=== PATIENT | female | born 1985 | race Caucasian/White ===

== ENCOUNTER 2016-04-17 08:28 | Emergency (ER) | payer OTHER ==
--- NOTE | 2016-04-17 09:55 | ED ---
Female Urogenital HPI - General Chief complaint: Urogenital Stated complaint: Female Gu Time Seen by Provider: 04/17/16 09:25 Source: patient, RN notes reviewed Mode of arrival: ambulatory Limitations: no limitations - History of Present Illness Initial comments: Patient is 31-year-old female presents to the emergency room for evaluation of abnormal vaginal discharge. Patient states her last menstrual period was . Patient states she went to the [facility] clinic about 3 weeks ago and had a positive test. Patient states she thinks she is about 8 weeks . Patient denies falling up with CONSTRUCTION AND MAINTENANCE INSPECTOR yet. Patient states she woke up this morning and had 2 large episodes of brown discharge. Patient denies abdominal pain. Patient denies nausea or vomiting. Patient denies pain or burning during urination, trouble urinating or blood in urine. Patient denies history of STDs. Patient denies any vaginal discomfort or burning. Patient denies fevers or chills. Patient states that discharge worried her so she thought she should be evaluated. Last Menstrual Period: 02/10/16 - Related Data Previous Rx's Medication Instructions Recorded Nitrofurantoin Monohyd/M-Cryst 100 mg PO Q12HR 7 Days 04/17/16 [Macrobid] Allergies Allergy/AdvReac Type Severity Reaction Status Date / Time No Known Allergies Allergy Verified 04/17/16 09:08 Review of Systems ROS Statement: Those systems with pertinent positive or pertinent negative responses have been documented in the HPI. ROS Other: All systems not noted in ROS Statement are negative. Past Medical History Past Medical History: No Reported History Additional Past Medical History / Comment(s): Obstetric history: She has had 3 previous normal vaginal deliveries. This is her fourth and she has had care with Dr Burrell since 8 weeks. O neg, abs neg, Rub Imm, RPR NR , Hep B neg. normal 1hr glucola and she received rhogam on 10-7 at 27 weeks and 4 days. History of Any Multi-Drug Resistant Organisms: None Reported Past Surgical History: Cholecystectomy Additional Past Surgical History / Comment(s): cholecystectomy 2006 Past Anesthesia/Blood Transfusion Reactions: No Reported Reaction Past Psychological History: No Psychological Hx Reported Smoking Status: Never smoker Past Alcohol Use History: None Reported, Occasional Past Drug Use History: None Reported - Past Family History Father Family Medical History: No Reported History General Exam - General Exam Comments Initial Comments: Sitting in exam room in no acute distress. Limitations: no limitations General appearance: alert, in no apparent distress Head exam: Present: atraumatic, normocephalic, normal inspection Eye exam: Present: normal appearance ENT exam: Present: normal exam Neck exam: Present: normal inspection Respiratory exam: Present: normal lung sounds bilaterally. Absent: respiratory distress Cardiovascular Exam: Present: regular rate, normal rhythm, normal heart sounds GI/Abdominal exam: Present: soft, normal bowel sounds. Absent: distended, tenderness, guarding, rebound, rigid External exam: Present: normal external exam Speculum exam: Present: normal speculum exam, vaginal discharge (Brown vaginal discharge) By manual exam: Present: normal by manual exam Extremities exam: Present: normal inspection Back exam: Present: normal inspection Neurological exam: Present: alert, oriented X3, CN II-XII intact, normal gait Psychiatric exam: Present: normal affect, normal mood Skin exam: Present: warm, dry, intact, normal color. Absent: rash Course Vital Signs 04/17/16 04/17/16 04/17/16 08:33 12:37 13:37 Temperature 97.4 F L 98 F Pulse Rate 66 75 63 Respiratory 18 20 16 Rate Blood Pressure 107/63 144/62 110/56 O2 Sat by Pulse 97 100 99 Oximetry Medical Decision Making - Medical Decision Making Patient is doing an old female presents emergency room for evaluation of vaginal discharge. Urine positive. Patient still denying any abdominal pain. Patient does have brown discharge on examination. Patient's blood type O negative. Due to the discoloration of discharged will place patient RhoGAM. Patient's quantitative beta hCG 95,000. Will have patient return in 2 days for repeat serum beta-hCG. Advised patient to follow-up with CONSTRUCTION AND MAINTENANCE INSPECTOR in 24-48 hours reevaluation. Patient states she understands everything that was discussed with her. Return parameters discussed. Case discussed with Dr. Woo. - Lab Data Lab Results 04/17/16 04/17/16 04/17/16 Range/Units 09:57 09:57 11:20 HCG, Quant 26638.9 mIU/mL Urine Color Yellow Urine Appearance Cloudy H (Clear) Urine pH 6.5 (5.0-8.0) Ur Specific [place] 1.024 (1.001-1.035) Urine Protein Trace H (Negative) Urine Glucose (UA) Negative (Negative) Urine Ketones Negative (Negative) Urine Blood Moderate H (Negative) Urine Nitrate Negative (Negative) Urine Bilirubin Negative (Negative) Urine Urobilinogen <2.0 (<2.0) mg/dL Ur Leukocyte Esterase Moderate H (Negative) Urine RBC 30 H (0-5) /hpf Urine WBC 27 H (0-5) /hpf Ur Squamous Epith Cells 4 (0-4) /hpf Urine Bacteria Rare H (None) /hpf Urine Mucus Few H (None) /hpf Urine HCG, Qual Detected (Not Detectd) Trichomonas Ag (Rapid) (Negative) Blood Type Blood Type Recheck Antibody Screen 04/17/16 04/17/16 Range/Units 11:20 11:20 HCG, Quant mIU/mL Urine Color Urine Appearance (Clear) Urine pH (5.0-8.0) Ur Specific [place] (1.001-1.035) Urine Protein (Negative) Urine Glucose (UA) (Negative) Urine Ketones (Negative) Urine Blood (Negative) Urine Nitrate (Negative) Urine Bilirubin (Negative) Urine Urobilinogen (<2.0) mg/dL Ur Leukocyte Esterase (Negative) Urine RBC (0-5) /hpf Urine WBC (0-5) /hpf Ur Squamous Epith Cells (0-4) /hpf Urine Bacteria (None) /hpf Urine Mucus (None) /hpf Urine HCG, Qual (Not Detectd) Trichomonas Ag (Rapid) Negative (Negative) Blood Type O Negative Blood Type Recheck No Antibody Screen NEGATIVE Disposition Clinical Impression: Threatened , Urinary tract infection Disposition: HOME SELF-CARE Condition: Good Instructions: Threatened Miscarriage (ED), Urinary Tract Infection in (ED) Additional Instructions: Take antibiotics as directed for urinary tract infection. Return to lab in 2 days for repeat serum beta-hCG level. Please follow-up with CONSTRUCTION AND MAINTENANCE INSPECTOR in 24-48 hours for reevaluation. If any new symptom arises or symptoms worsen, return to ER as soon as possible. Prescriptions: Nitrofurantoin Monohyd/M-Cryst [Macrobid] 100 mg PO Q12HR 7 Days Referrals: Billie Luna MD [STAFF PHYSICIAN] - 1-2 days Time of Disposition: 13:26
[2016-04-17 10:23] LABS: Appearance,Urine Cloudy (Clear); Bacteria,Urine Rare /hpf; Bilirubin,Urine Negative (Negative); Glucose,Urine (UA) Negative (Negative); Ketones,Urine Negative (Negative); Leukocyte Esterase,Urine Moderate (Negative); Mucus,Urine Few /hpf; Nitrite,Urine Negative (Negative); PH, Urine 6.5 (5.0-8.0); Particle Count 7685; Protein,Urine Trace (Negative); RBC,Urine 30 /hpf (0-5); Specific Gravity,Urine 1.024 (1.001-1.035); Squamous Epithelial Cell,Urine 4 /hpf (0-4); UA Billing (MACRO vs. MICRO) MICRO; Urobilinogen,Urine <2.0 mg/dL (<2.0); WBC,Urine 27 /hpf (0-5)
[2016-04-17] MEDS ORDERED: Rhogam IMMUNE GLOBULIN 1,500 UNIT/1 ML IM ONE (13:10)
[2016-04-17 13:38] VITALS: BP 110/56; PULSE 63; RESP 16; TEMP 98
== END 2016-04-17 14:09 | disposition home or self-care (01) ==
LOC: EC 08:28
DX: O20.0 Threatened abortion (principal); N39.0 Urinary tract infection, site not specified; Z3A.08 8 weeks gestation of pregnancy
CPT/HCPCS: 99283; 96372; 36415; 86900; 86901; 87591; 87491; 86850; 81001; 81025; 84702; 87808; 87070; 87205; J2791

== ENCOUNTER → 2016-04-19 | Outpatient (CLI) | payer OTHER | END | disposition home or self-care (01) | LOC: LABMAIN 17:49 | PROVIDERS: ATTEND Physician Assistant | DX: O20.0 Threatened abortion (principal); Z3A.00 Weeks of gestation of pregnancy not specified | CPT/HCPCS: 36415; 84702 ==

== ENCOUNTER 2016-07-02 16:32 | Emergency (ER) | payer OTHER ==
[2016-07-02 17:08] VITALS: BP 116/63; PULSE 73; RESP 18; TEMP 98.2
[2016-07-02] MEDS ORDERED: TOBRAMYCIN 0.3% OPHTH DROPS 5 ML BTL RIGHT EYE STA (17:31)
[2016-07-02] MEDS ORDERED: PROPARACAINE 0.5% OPHTH DROPS 15 ML BTL RIGHT EYE STA (17:31)
--- NOTE | 2016-07-02 17:32 | ED ---
Eye Problem HPI - General Chief complaint: Eye Problems Stated complaint: Eye Irritation Source: patient, RN notes reviewed, old records reviewed Mode of arrival: ambulatory Limitations: no limitations - History of Present Illness Initial comments: Patient is a 31-year-old [employer] chief complaint of feeling a foreign body sensation or possible infection in her right eye. She reports this is been going on for 2 days. She is unsure if she got anything in her eye. She denies any fever or chills or decreased vision. She states that she did wake up with her eye crusted. Patient states she is up-to-date on all vaccinations. She denies any pain with extraocular eye movements or bright lights. - Related Data Previous Rx's Medication Instructions Recorded Nitrofurantoin Monohyd/M-Cryst 100 mg PO Q12HR 7 Days 04/17/16 [Macrobid] Allergies Allergy/AdvReac Type Severity Reaction Status Date / Time No Known Allergies Allergy Verified 07/02/16 17:08 Review of Systems ROS Statement: Those systems with pertinent positive or pertinent negative responses have been documented in the HPI. ROS Other: All systems not noted in ROS Statement are negative. Past Medical History Past Medical History: No Reported History Additional Past Medical History / Comment(s): Obstetric history: She has had 3 previous normal vaginal deliveries. This is her fourth and she has had care with Dr Burrell since 8 weeks. O neg, abs neg, Rub Imm, RPR NR , Hep B neg. normal 1hr glucola and she received rhogam on -7 at 27 weeks and 4 days. History of Any Multi-Drug Resistant Organisms: None Reported Past Surgical History: Cholecystectomy Additional Past Surgical History / Comment(s): cholecystectomy 2006 Past Anesthesia/Blood Transfusion Reactions: No Reported Reaction Past Psychological History: No Psychological Hx Reported Smoking Status: Never smoker Past Alcohol Use History: None Reported, Occasional Past Drug Use History: None Reported - Past Family History Father Family Medical History: No Reported History General Exam - General Exam Comments Initial Comments: Pleasant 31-year-old female. No distress. Limitations: no limitations General appearance: alert, in no apparent distress Head exam: Present: atraumatic, normocephalic, normal inspection Eye exam: Present: normal appearance, PERRL, EOMI, conjunctival injection ( Right eye conjunctival injection.). Absent: scleral icterus, periorbital swelling ENT exam: Present: normal exam, mucous membranes moist Neck exam: Present: normal inspection Respiratory exam: Present: normal lung sounds bilaterally. Absent: respiratory distress, wheezes, rales, rhonchi, stridor Cardiovascular Exam: Present: regular rate, normal rhythm, normal heart sounds. Absent: systolic murmur, diastolic murmur, rubs, gallop, clicks GI/Abdominal exam: Present: soft, normal bowel sounds. Absent: distended, tenderness, guarding, rebound, rigid Extremities exam: Present: normal inspection, full ROM, normal capillary refill. Absent: tenderness, pedal edema, joint swelling, calf tenderness Back exam: Present: normal inspection Neurological exam: Present: alert, oriented X3, CN II-XII intact Psychiatric exam: Present: normal affect, normal mood Skin exam: Present: warm, dry, intact, normal color. Absent: rash Course Vital Signs 07/02/16 17:06 Temperature 98.2 F Pulse Rate 73 Respiratory 18 Rate Blood Pressure 116/63 O2 Sat by Pulse 99 Oximetry Medical Decision Making - Medical Decision Making Patient is a 31 year old female with conjunctivitis in right eye for 1 day. Patient has no foreign body, fluoerescein eye exam negative. PAtient will be discharged with tobrex drops, advised to follow up with othalmology if symptoms persist. PAtient understands treatment plan and while comply. Disposition Clinical Impression: Conjunctivitis, right eye Disposition: HOME SELF-CARE Condition: Good Instructions: Conjunctivitis (ED) Additional Instructions: Apply the given antibiotic drop in the eye every 4 hours. Patient must follow- up with customer service clerk if symptoms continue to persist. Return to emergency Department if any alarming signs or symptoms occur. Referrals: None,Stated [Primary Care Provider] - 1-2 days Paola Ponce MD [STAFF PHYSICIAN] - 1-2 days Lefty Birmingham MD [STAFF PHYSICIAN] - 1-2 days Time of Disposition: 18:14
== END 2016-07-02 18:28 | disposition home or self-care (01) ==
LOC: EC 16:32
DX: H10.9 Unspecified conjunctivitis (principal)
CPT/HCPCS: 99283

== ENCOUNTER 2018-05-17 23:47 | Outpatient (CLI) | payer OTHER ==
[2018-05-18 00:58] VITALS: BP 132/89; PULSE 108; RESP 16; TEMP 97.1
--- NOTE | 2018-05-20 08:37 | P.MSEPDOC ---
Presenting Problems - Arrival Data Date of Arrival on Unit: 05/17/18 Time of Arrival on Unit: 23:47 Mode of Transport: Wheelchair - Complaint OB-Reason for Admission/Chief Complaint: Possible Onset of Labor Medical History - Information : 7 Para: 6 Term: 6 : 0 Abortions: Spontaneous or Elective: 0 Number of Living Children: 6 - Gestational Age Gestational Age by ELVIN (wks/days): 40 Weeks and 0 Days - History Complications: Smoker Review of Systems - Review of Systems Constitutional: No problems Breast: No problems ENT: No problems Cardiovascular: No problems Respiratory: No problems Gastrointestinal: No problems Genitourinary: No problems Musculoskeletal: No problems Neurological: No problems Skin: No problems Vital Signs - Temperature Temperature: 97.1 F Temperature Source: Temporal Artery Scan - Pulse Right Brachial Pulse Rate: 108 Pulse Assessment Method: Automatic Cuff - Respirations Respiratory Rate: 16 Oxygen Delivery Method: Room Air O2 Sat by Pulse Oximetry: 99 - Blood Pressure Right Arm Blood Pressure: 132/89 Blood Pressure Mean: 103 Blood Pressure Source: Automatic Cuff Medical Screen Scoring (Pre) - Cervical Exam Dilation: 1-3 cm = 1 Membranes: Intact - Uterine Contractions Frequency: N/A Duration: N/A Intensity: N/A - Maternal Vital Signs Maternal Temperature: N/A Maternal Blood Pressure: N/A Signs of Preeclampsia: N/A Maternal Respirations: N/A - Pain Assessment Pain Scale Used: Numeric (1 - 10) Pain Intensity: 0 - Maternal Trauma Maternal Trauma: N/A - Assessment Baseline FHR: 135 Heart Rate - NICHD Category: Category I (Normal) = 0 NST: Reactive Position: N/A - Total Score Total Score (Pre): 1 Physician Notification (Pre) - Physician Notified Physician Notified Date: 05/18/18 Physician Notified Time: 00:45 Physician/Practitioner Notifed:: Dr. Luna Spoke With: Dr. Luna New Order Received: Yes - Notification Comment Comment: Dr. Luna called and given report on pt. Pt c/o. VS wnl. reactive NST. vag exam of 2/70/-2. No contractions noted per toco or patient. Orders recieved to d/c pt to home. Disposition - Disposition OB Disposition: Discharge to home Discharge Date: 05/18/18 Discharge Time: 00:45 I agree with the RN Medical Screening Exam: Yes Risk & Benefit of care provided described in d/c instruction: Yes Diagnosis: FALSE LABOR, UNSPECIFIED
== END 2018-05-18 00:50 | disposition home or self-care (01) ==
LOC: FBPOP 23:47
PROVIDERS: ATTEND Obstetrics & Gynecology
DX: O47.1 False labor at or after 37 completed weeks of gestation (principal); O99.333 Smoking (tobacco) complicating pregnancy, third trimester; F17.200 Nicotine dependence, unspecified, uncomplicated; Z3A.40 40 weeks gestation of pregnancy
CPT/HCPCS: 59025; G0463; 99213

== ENCOUNTER 2018-05-22 06:00 | Inpatient (IN) | payer OTHER ==
[2018-05-22] MEDS ORDERED: LIDOCAINE 0.5% (PF) 5 MG/ML (50 ML SDV) SQ PRN (06:48)
[2018-05-22] MEDS ORDERED: PENICILLIN G POTASSIUM 5,000,000 UNIT in DEXTROSE 5% IN WATER 100 ML IVPB STA ×2 (06:48)
[2018-05-22] MEDS ORDERED: METHYLERGONOVINE 0.2 MG/ML 1 ML AMP IM PRN (06:48)
[2018-05-22] MEDS ORDERED: TERBUTALINE 1 MG/ML VIAL SQ PRN (06:48)
[2018-05-22] MEDS ORDERED: OXYTOCIN 10 UNIT/ML 1 ML VIAL IM PRN (06:48)
[2018-05-22] MEDS ORDERED: CARBOPROST TROMETHAMINE 250 MCG/ML 1 ML AMP IM PRN (06:48)
[2018-05-22 06:57] VITALS: BMI 30.4
[2018-05-22] MEDS ORDERED: OXYTOCIN 30 UNITS/500 ML NS 30 UNIT in SALINE 1 500ML.BAG IV SCH (07:00)
[2018-05-22] MEDS: LACTATED RINGERS 1,000 ML IV SCH (07:03)
[2018-05-22 07:16] LABS: Basophils % (A) 0 %; Eosinophils # (A) 0.3 k/uL (0-0.7); Eosinophils % (A) 2 %; HGB 10.8 gm/dL (11.4-16.0); Lymphocytes # (A) 2.9 k/uL (1.0-4.8); Lymphocytes % (A) 21 %; MCH 26.7 pg (25.0-35.0); MCHC 32.6 g/dL (31.0-37.0); MCV 81.9 fL (80.0-100.0); Mean Platelet Volume 6.2; Monocytes # (A) 0.6 k/uL (0-1.0); Monocytes % (A) 4 %; Neutrophils # (A) 10.2 k/uL (1.3-7.7); Neutrophils % (A) 72 %; Platelet Count 321 k/uL (150-450); RBC 4.03 m/uL (3.80-5.40); RDW 15.8 % (11.5-15.5); WBC 14.2 k/uL (3.8-10.6)
[2018-05-22] MEDS ORDERED: BUTORPHANOL 1 MG/ML 1 ML VIAL IV PRN (08:38)
--- NOTE | 2018-05-22 08:44 | P.HPOB ---
History of Present Illness H&P Date: 05/22/18 Chief Complaint: 40-4/7 weeks, induction The patient is a 33-year-old 7 para 6006 admitted at 40-4/7 weeks as established by an 8 week ultrasound. She is admitted for postdates induction of labor with all signs reassuring. Her has been complicated by early diagnosis of Trichomonas and Chlamydia treated and tested for curet which time Chlamydia was found to be positive again at approximately 35 weeks and was retreated. There has not been time for test of cure. She additionally had an episode during the at which time she complained of pustular lesions in the vulvar area which were presumptively thought to be herpes and treated as such though cultures were negative as it was the end of the episode. Nonetheless, she has presumably been on prophylaxis since that time. She additionally is Rh- and received RhoGAM at 28 weeks. Group B strep status is positive. care has been relatively inconsistent as the patient misses multiple appointments. Obstetrical history: 7 para 6006 was 6 term vaginal deliveries. Current statistics are listed above. EDC of 05/18/2018 was established by an 8 week ultrasound. Laboratory workup demonstrates a blood type of O- with a negative antibody screen. Rubella status is immune. The remainder of the laboratory workup was within normal limits aside from the positive STD testing which was treated. One hour Glucola was within normal limits. Retesting for STDs at approximately 35 weeks was again positive for chlamydia which was retreated as was her partner. Group B strep status is positive. Gynecologic history: Significant for multiple episodes of STDs as noted in history of present illness. There is a presumptive history of HSV though it has never been culture proven. There are no evidence of lesions currently. Review of Systems Review of systems is confined to history of present illness. Past Medical History Past Medical History: No Reported History Additional Past Medical History / Comment(s): Obstetric history: She has had 3 previous normal vaginal deliveries. This is her fourth and she has had care with Dr Burrell since 8 weeks. O neg, abs neg, Rub Imm, RPR NR , Hep B neg. normal 1hr glucola and she received rhogam on 10-7 at 27 weeks and 4 days. History of Any Multi-Drug Resistant Organisms: None Reported Past Surgical History: Cholecystectomy Additional Past Surgical History / Comment(s): cholecystectomy 2006 Past Anesthesia/Blood Transfusion Reactions: No Reported Reaction Past Psychological History: No Psychological Hx Reported Smoking Status: Current every day smoker Past Alcohol Use History: None Reported, Occasional Past Drug Use History: None Reported - Past Family History Father Family Medical History: No Reported History Medications and Allergies Home Medications Medication Instructions Recorded Confirmed Type Pnv No.95/Ferrous Fum/Folic AC 1 each PO ONCE 05/17/18 05/22/18 History [ Multivitamin Tablet] Allergies Allergy/AdvReac Type Severity Reaction Status Date / Time No Known Allergies Allergy Verified 05/22/18 06:48 Exam Vital Signs Temp Pulse Resp BP Pulse Ox 05/22/18 06:51 96.5 F L 74 15 131/65 98 Intake and Output 05/21/18 05/22/18 05/22/18 22:59 06:59 14:59 Other: Weight 85.411 kg In general, this is a well-developed, well-nourished white female in no acute distress. Her heart has a regular rhythm and rate without murmur. Her lungs are clear to auscultation bilaterally in all teixeira. Her abdomen is gravid, nondistended, has normal active bowel sounds, soft, nontender, and without any palpable masses aside from uterine fundus. Her extremities are without any cyanosis, clubbing, or significant edema and are nontender to palpation bilaterally. Digital cervical examination demonstrated sugars to approximate 3 cm dilated, 50% effaced, with the vertex in presentation at -2 station. Artificial rupture of membranes is carried out demonstrating clear fluid. Results Result Diagrams: 05/22/18 06:55 Abnormal Lab Results - Last 24 Hours (Table) 05/22/18 Range/Units 06:55 WBC 14.2 H (3.8-10.6) k/uL Hgb 10.8 L (11.4-16.0) gm/dL Hct 33.0 L (34.0-46.0) % RDW 15.8 H (11.5-15.5) % Neutrophils # 10.2 H (1.3-7.7) k/uL Assessment and Plan (1) Group B streptococcal infection in Current Visit: Yes Status: Acute Code(s): O98.819 - OTH MATERNAL INFEC/ PARASTC DISEASES COMP PREG, UNSP TRI; B95.1 - STREPTOCOCCUS, GROUP B, CAUSING DISEASES CLASSD [id number] SNOMED Code(s): 757587334 (2) Post-dates Current Visit: Yes Status: Acute Code(s): O48.0 - POST-TERM SNOMED Code(s): 83549624 Plan: The patient has been admitted for induction of labor and Pitocin augmentation has been started. Additionally she has had antibiotic prophylaxis started for group B strep. Artificial rupture of membranes is been carried out. We will continue with expectant management along with close maternal and surveillance. The patient is a good candidate for either IV or epidural analgesia, whichever she may choose.
[2018-05-22] MEDS ORDERED: PENICILLIN G POTASSIUM 2,500,000 UNIT in DEXTROSE 5% IN WATER 100 ML IVPB SCH ×4 (10:49→11:00)
[2018-05-22] MEDS ORDERED: ZOLPIDEM 5 MG TAB PO PRN (13:27)
[2018-05-22] MEDS ORDERED: diphenhydrAMINE 50 MG CAP PO PRN (13:27)
[2018-05-22] MEDS ORDERED: ACETAMINOPHEN TAB 325 MG TAB PO PRN (13:27)
[2018-05-22] MEDS ORDERED: HYDROCORTISONE 2.5% RECTAL CREAM 30 GM TUBE RECTAL PRN (13:27)
[2018-05-22] MEDS ORDERED: BENZOCAINE/MENTHOL SPRAY 1 GM/SPRAY AEROSOL TOPICAL PRN (13:27)
[2018-05-22] MEDS ORDERED: WITCH HAZEL 1 EACH MED..PAD TOPICAL PRN (13:27)
[2018-05-22] MEDS ORDERED: diphenhydrAMINE 50 MG/ML 1 ML VIAL IVP PRN ×2 (13:27)
[2018-05-22] MEDS ORDERED: SIMETHICONE 80 MG CHEWABLE PO PRN (13:27)
[2018-05-22] MEDS ORDERED: diphenhydrAMINE 25 MG CAP PO PRN (13:27)
[2018-05-22] MEDS ORDERED: OXYTOCIN 20 UNITS/1000 ML NS 1,000 ML IV SCH (13:30)
--- NOTE | 2018-05-22 13:31 | P.PROBDLV ---
Vaginal Delivery Note - . Vaginal Delivery Note: The patient is a 33-year-old 7 para 6 or 06 admitted at 40-4/7 weeks by good dating parameters. She is admitted for postdates induction of labor after having had fairly erratic care. She also was found with chlamydia twice during the as well as Trichomonas early on in the , all of which was treated though the most recent chlamydial test has not been tested for cure. She is Rh- and received RhoGAM at 28 weeks and also was found to be group B strep positive. On labor and delivery, she had Pitocin started followed by antibiotic prophylaxis for group B strep. She underwent artificial rupture of membranes for clear fluid and made fairly quick progress through the active phase of labor to complete and 0 station. She pushed over the course of approximately 1 contraction to a normal spontaneous vaginal delivery of a viable 6 lbs. 9 oz. baby boy with Apgars of 9 at 1 minute and 9 at 5 minutes delivered in the left occiput anterior position. The placenta was delivered spontaneously, intact, and grossly normal with a grossly normal three-vessel cord inserted approximately 1 cm from the placental margin. The cord was also noted to have a single true knot. There were no lacerations of the perineum, vagina, or cervix. All sponge, instrument, and needle counts were correct. There were no complications. Estimated blood loss for the case is approximately 150 mL. Both mother and are resting comfortably in recovery.
[2018-05-22] MEDS: IBUPROFEN 600 MG TAB PO PRN ×2 (14:06→21:48)
[2018-05-22] MEDS ORDERED: Rhogam IMMUNE GLOBULIN 1,500 UNIT/1 ML IM ONE (16:43)
[2018-05-22] MEDS ORDERED: SENNOSIDES-DOCUSATE SODIUM 1 EACH TAB PO SCH (20:00)
[2018-05-23] MEDS: LACTATED RINGERS 1,000 ML IV SCH (05:49)
--- NOTE | 2018-05-23 09:22 | P.DS ---
Providers Date of admission: 05/22/18 06:38 Expected date of discharge: 05/23/18 Attending physician: Pato Durán Primary care physician: Stated None - Discharge Diagnosis(es) (1) Group B streptococcal infection in Current Visit: Yes Status: Acute (2) Post-dates Current Visit: Yes Status: Acute (3) Normal spontaneous vaginal delivery Current Visit: Yes Status: Acute Hospital Course: The patient is a 33-year-old 7 para 6006 admitted at 40-4/7 weeks by good dating parameters. She is admitted for postdates induction with all signs reassuring. Her was complicated by chlamydia diagnosed on 2 separate occasions and treated each time as well as Trichomonas diagnosed initially and treated as well. She additionally is known to be Rh- and received RhoGAM at 28 weeks. She was also thought at one point in the to had a herpetic outbreak and has reportedly been on prophylaxis through the remainder of the . care has been spotty as the patient has not shown in the office for many of her visits. On labor and delivery, she had Pitocin started as well as antibody prophylaxis for group B strep. She underwent artificial rupture of membranes for clear fluid. She progressed relatively consistently to complete and then pushed quickly to a normal spontaneous vaginal delivery of a viable 6 lbs. 9 oz. baby boy with Apgars of 9 at 1 minute and 9 at 5 minutes. Her course was unremarkable with vital signs remaining stable and her temperature was afebrile throughout. She was deemed stable for discharge on day #1 was discharged home to follow-up in the office in 6 weeks' time routinely. Discharge instructions included calling for any significantly increased bleeding or foul-smelling lochia, significantly increased fever or abdominal pain, perineal complaints, breast complaints, or anything else that concerned her. She was additionally instructed to have nothing in the vagina for at least 6 weeks time to include intercourse. She did express at her most recent visit a desire for tubal ligation and I have asked her to return to the office at approximate 5 weeks for a visit at which time we will also consent and book laparoscopic tubal ligation. Consent has been signed to that effect in the office. She understood all of her instructions and agrees to follow up as noted above. Discharge medications included only [id number] analgesic pain medications as needed. There is some question as to whether the will be released to the patient as she does not have possession of her previous 6 children. CPS is involved and will make a decision shortly. Maternal blood type is Rh- and cord blood was sent for the evaluation of RhoGAM prior to discharge. Rubella status is immune. Procedures: #1. Pitocin induction #2. Antibiotic prophylaxis #3. Artificial rupture of membranes #4. Normal spontaneous vaginal delivery #5. access services assistant consult Patient Condition at Discharge: Good Plan - Discharge Summary New Discharge Prescriptions: No Action Pnv No.95/Ferrous Fum/Folic AC [ Multivitamin Tablet] 1 each PO ONCE Discharge Medication List Pnv No.95/Ferrous Fum/Folic AC [ Multivitamin Tablet] 1 each PO ONCE [History] Follow up Appointment(s)/Referral(s): Pato Durán MD [STAFF PHYSICIAN] - 6 Weeks Discharge Disposition: HOME SELF-CARE
[2018-05-23] MEDS: IBUPROFEN 600 MG TAB PO PRN (16:32)
[2018-05-23 18:09] VITALS: BP 112/72; PULSE 80; RESP 18; TEMP 98.3
== END 2018-05-23 17:15 | disposition home or self-care (01) | DRG 807 ==
LOC: 4FBP 06:38
PROVIDERS: ADMIT Obstetrics & Gynecology; ATTEND Obstetrics & Gynecology
PROC: 3E033VJ Introduction of Other Hormone into Peripheral Vein, Percutaneous Approach (ICD-10-PCS; principal; 2018-05-22)
PROC: 10E0XZZ Delivery of Products of Conception, External Approach (ICD-10-PCS; principal; 2018-05-22)
PROC: 10907ZC Drainage of Amniotic Fluid, Therapeutic from Products of Conception, Via Natural or Artificial Opening (ICD-10-PCS; principal; 2018-05-22)
DX: O48.0 Post-term pregnancy (principal); Z37.0 Single live birth; Z3A.40 40 weeks gestation of pregnancy; O99.824 Streptococcus B carrier state complicating childbirth; F17.200 Nicotine dependence, unspecified, uncomplicated; O99.334 Smoking (tobacco) complicating childbirth; Z90.49 Acquired absence of other specified parts of digestive tract; O69.2XX0 Labor and delivery complicated by other cord entanglement, with compression, not applicable or unspecified
CPT/HCPCS: 85025; 85461; 86850; 86900; 86901

== ENCOUNTER → 2019-02-18 | Outpatient (CLI) | payer OTHER ==
[~2019-02-18] MED LIST: cefTRIAXone 250 MG VIAL IM NR
[2019-02-18 15:03] VITALS: BP 118/73; PULSE 65; RESP 16; TEMP 98.4
== END | disposition home or self-care (01) ==
LOC: PROCWHC3 14:41
PROVIDERS: ATTEND Obstetrics & Gynecology
DX: A54.9 Gonococcal infection, unspecified (principal)
CPT/HCPCS: 96372; J0696

== ENCOUNTER → 2019-05-05 | Outpatient (CLI) | payer OTHER ==
[2019-05-05 13:00] LABS: HCT 31.4 % (34.0-46.0); HGB 10.3 gm/dL (11.4-16.0); MCH 28.2 pg (25.0-35.0); MCHC 32.7 g/dL (31.0-37.0); MCV 86.1 fL (80.0-100.0); Mean Platelet Volume 7.2; Platelet Count 307 k/uL (150-450); RBC 3.64 m/uL (3.80-5.40); RDW 13.2 % (11.5-15.5); WBC 16.3 k/uL (3.8-10.6)
== END | disposition home or self-care (01) ==
LOC: LABWHC1 12:06
PROVIDERS: ATTEND Obstetrics & Gynecology
DX: Z34.82 Encounter for supervision of other normal pregnancy, second trimester (principal); Z3A.00 Weeks of gestation of pregnancy not specified
CPT/HCPCS: 36415; 82950; 85027; 86850

== ENCOUNTER 2019-07-01 10:35 | Outpatient (CLI) | payer OTHER ==
[2019-07-01 11:21] VITALS: BP 108/63; PULSE 77; RESP 16; TEMP 97.2
--- NOTE | 2019-07-01 12:17 | P.MSEPDOC ---
Presenting Problems - Arrival Data Date of Arrival on Unit: 07/01/19 Time of Arrival on Unit: 10:35 Mode of Transport: Ambulatory - Complaint OB-Reason for Admission/Chief Complaint: Decreased Movement, NST Comment: sent from office with script due to doppler of 110bpm and decreased movement Medical History - Information : 8 Para: 7 Term: 7 : 0 Abortions: Spontaneous or Elective: 0 Number of Living Children: 7 - Gestational Age Gestational Age by ELVIN (wks/days): 35 Weeks and 5 Days - History Complications: Smoker Review of Systems - Review of Systems Constitutional: No problems Breast: No problems ENT: No problems Cardiovascular: No problems Respiratory: No problems Gastrointestinal: No problems Genitourinary: No problems Musculoskeletal: No problems Neurological: No problems Skin: No problems Vital Signs - Temperature Temperature: 97.2 F Temperature Source: Temporal Artery Scan - Pulse Right Brachial Pulse Rate: 77 Pulse Assessment Method: Automatic Cuff - Respirations Respiratory Rate: 16 Oxygen Delivery Method: Room Air O2 Sat by Pulse Oximetry: 97 - Blood Pressure Right Arm Blood Pressure: 108/63 Blood Pressure Mean: 78 Blood Pressure Source: Automatic Cuff Medical Screen Scoring (Pre) - Cervical Exam Dilation: Exam Deferred Effacement: Exam Deferred - Uterine Contractions Frequency: > 5 minutes apart = 1 Duration: N/A Intensity: N/A - Maternal Vital Signs Maternal Temperature: N/A Maternal Blood Pressure: N/A Signs of Preeclampsia: N/A, Headache = 1 Maternal Respirations: N/A - Maternal Trauma Maternal Trauma: N/A - Assessment - Baby A Baseline FHR: 115 Heart Rate - NICHD Category: Category I (Normal) = 0 NST: Reactive Position: N/A Station: N/A - Total Score - Baby A Total Score - Baby A: 2 - Total Score - Baby B Total Score - Baby B: 2 - Total Score - Baby C Total Score - Baby C: 2 - Level of Risk - Baby A Level of Risk - Baby A: Low (0-5) - Level of Risk - Baby B Level of Risk - Baby B: Low (0-5) - Level of Risk - Baby C Level of Risk - Baby C: Low (0-5) Physician Notification (Pre) - Physician Notified Physician Notified Date: 07/01/19 Physician Notified Time: 11:15 New Order Received: Yes (discharge with instruction) - Notification Comment Comment: Dr. De La Fuente called and reported category 1 hearttones with baseline of 115-110, many accelerations, much movement. Orders ok to discharge and keep next scheduled appt. Disposition - Disposition OB Disposition: Triage, Discharge to home Discharge Date: 07/01/19 Discharge Time: 11:17 I agree with the RN Medical Screening Exam: Yes Risk & Benefit of care provided described in d/c instruction: Yes Diagnosis: RELATED CONDITIONS, UNSPECIFIED, THIRD TRIMESTER
== END 2019-07-01 11:17 | disposition home or self-care (01) ==
LOC: FBPOP 10:35
PROVIDERS: ATTEND Obstetrics & Gynecology
DX: O36.8130 Decreased fetal movements, third trimester, not applicable or unspecified (principal); O99.333 Smoking (tobacco) complicating pregnancy, third trimester; F17.200 Nicotine dependence, unspecified, uncomplicated; Z3A.35 35 weeks gestation of pregnancy
CPT/HCPCS: 59025

== ENCOUNTER 2019-07-20 18:01 | Inpatient (IN) | payer OTHER ==
[2019-07-20] MEDS ORDERED: CARBOPROST TROMETHAMINE 250 MCG/ML 1 ML AMP IM PRN (18:33)
[2019-07-20] MEDS ORDERED: METHYLERGONOVINE 0.2 MG/ML 1 ML AMP IM PRN (18:33)
[2019-07-20] MEDS ORDERED: OXYTOCIN 10 UNIT/ML 1 ML VIAL IM PRN (18:33)
[2019-07-20] MEDS ORDERED: AMPICILLIN 2,000 MG in SODIUM CHLORIDE 0.9% 100 ML IVPB STA (18:33)
[2019-07-20] MEDS ORDERED: LIDOCAINE 0.5% (PF) 5 MG/ML (50 ML SDV) SQ PRN (18:33)
[2019-07-20] MEDS ORDERED: TERBUTALINE 1 MG/ML VIAL SQ PRN (18:33)
[2019-07-20] MEDS ORDERED: LACTATED RINGERS 1,000 ML IV SCH (18:45)
[2019-07-20] MEDS ORDERED: OXYTOCIN 30 UNITS/500 ML NS 30 UNIT in SALINE 1 500ML.BAG IV SCH (18:45)
[2019-07-20 19:12] LABS: Basophils % (A) 0 %; Eosinophils # (A) 0.2 k/uL (0-0.7); Eosinophils % (A) 2 %; HCT 31.7 % (34.0-46.0); HGB 10.6 gm/dL (11.4-16.0); Hypochromasia Slight; Lymphocytes # (A) 1.9 k/uL (1.0-4.8); Lymphocytes % (A) 13 %; MCH 26.8 pg (25.0-35.0); MCHC 33.5 g/dL (31.0-37.0); Mean Platelet Volume 7.5; Monocytes # (A) 0.6 k/uL (0-1.0); Monocytes % (A) 4 %; Neutrophils # (A) 12.2 k/uL (1.3-7.7); Neutrophils % (A) 80 %; Platelet Count 286 k/uL (150-450); RBC 3.97 m/uL (3.80-5.40); RDW 15.3 % (11.5-15.5); WBC 15.2 k/uL (3.8-10.6)
--- NOTE | 2019-07-20 19:32 | P.HPOB ---
History of Present Illness H&P Date: 07/20/19 Chief Complaint: Contractions This is a 34-year-old female 8 para 7 with the estimated date of confinement of 07/31/2019, estimated gestational age of 38-3/7 weeks, who presents to labor and delivery with complaints of contractions since approximately 11 PM last night. She states she also felt like she was leaking some fluid at that time. Her contractions became more persistent through the day and she came in. Her care has been with Dr. De La Fuente. She was treated for gonorrhea at approximately 20 weeks. Test of cure was negative. She does plan to give the baby up for adoption and currently does not have custody of any of her other children. She denies any complications with her care. labs: Gonorrhea-positive with test of cure negative. Chlamydia/Trichomonas-negative Hepatitis B surface antigen-negative RPR-nonreactive Rubella-immune Blood type-O- Antibody screen-negative HIV-nonreactive Hemoglobin-12.1 Quad screen-negative Random glucose-75 Obstetrical ultrasound-normal anatomy One hour Glucola-123 Group B streptococcus-negative, however positive in her last . Obstetrical history: . History of 7 vaginal deliveries all at term. She denies any competitions with any of her pregnancies. Social history: She is single. She is unemployed. Gynecologic history: History of Chlamydia and Trichomonas treated in previous pregnancies and history of gonorrhea treated during this . Review of Systems Constitutional: Denies chills, Denies fever Eyes: denies blurred vision, denies pain Ears, nose, mouth and throat: Denies headache, Denies sore throat Cardiovascular: Denies chest pain, Denies shortness of breath Respiratory: Denies cough Gastrointestinal: Reports abdominal pain (Irregular contractions) Genitourinary: Reports pelvic pain, Reports Musculoskeletal: Reports low back pain Integumentary: Denies pruritus, Denies rash Neurological: Denies numbness, Denies weakness Past Medical History Past Medical History: No Reported History History of Any Multi-Drug Resistant Organisms: None Reported Past Surgical History: Cholecystectomy Additional Past Surgical History / Comment(s): cholecystectomy 2006 Past Anesthesia/Blood Transfusion Reactions: No Reported Reaction Past Psychological History: No Psychological Hx Reported Smoking Status: Current every day smoker Past Alcohol Use History: None Reported Past Drug Use History: None Reported - Past Family History Father Family Medical History: No Reported History Medications and Allergies Home Medications Medication Instructions Recorded Confirmed Type No Known Home Medications 02/18/19 07/20/19 History Allergies Allergy/AdvReac Type Severity Reaction Status Date / Time No Known Allergies Allergy Verified 07/20/19 18:33 Exam Osteopathic Statement: *. No significant issues noted on an osteopathic structural exam other than those noted in the History and Physical/Consult. Intake and Output 07/20/19 07/20/19 07/20/19 06:59 14:59 22:59 Other: Weight 89.811 kg Gen.: Well-developed well-nourished female in no acute distress HEENT: Within normal limits Heart: Regular rate and rhythm Lungs: Clear to auscultation bilaterally Abdomen: Cervix: 6-7 cm/thick/-3 station. heart tones: Category 1 with contractions every 2-3 minutes Extremities: Negative Homans Results Result Diagrams: 07/20/19 18:45 Abnormal Lab Results - Last 24 Hours (Table) 07/20/19 Range/Units 18:45 WBC 15.2 H (3.8-10.6) k/uL Hgb 10.6 L (11.4-16.0) gm/dL Hct 31.7 L (34.0-46.0) % Neutrophils # 12.2 H (1.3-7.7) k/uL Assessment and Plan (1) 38 weeks gestation of Current Visit: Yes Status: Acute Code(s): Z3A.38 - 38 WEEKS GESTATION OF SNOMED Code(s): 21268895 (2) Group B Streptococcus carrier, +RV culture, currently Current Visit: Yes Status: Acute Code(s): O99.820 - STREPTOCOCCUS B CARRIER STATE COMPLICATING SNOMED Code(s): 8773360331217 Plan: Admission for early active labor. Antibiotic prophylaxis secondary to history of group B Streptococcus in previous . Expectant management. Patient does plan to give the baby up for adoption via open adoption. Social work will be notified.
[2019-07-20] MEDS ORDERED: BUTORPHANOL 1 MG/ML 1 ML VIAL IV PRN (22:48)
[2019-07-20] MEDS ORDERED: AMPICILLIN 1,000 MG in SODIUM CHLORIDE 0.9% 50 ML IVPB SCH (23:00)
--- NOTE | 2019-07-20 23:57 | P.PROBDLV ---
Vaginal Delivery Note - . Vaginal Delivery Note: The patient progressed to complete dilation after oxytocin augmentation of labor and one dose of Stadol. Once reaching complete dilation, she began pushing. Infant's head came to a crown and then delivered across the perineum followed by the remainder of the body. was placed on mother's abdomen and cord was clamped and cut. Nose and mouth were also bulb suctioned. A viable male was noted with scores of 9 at 1 minute and 9 at 5 minutes and weight of 5 lbs. 15 oz. Placenta delivered shortly thereafter, intact, with a three-vessel cord. Uterus contracted well after oxytocin was given and uterine massage was carried out. Also her bladder was drained with a straight cath. Estimated blood loss is approximately 100 mL's. Both mother and are in stable condition.
[2019-07-21] MEDS ORDERED: SIMETHICONE 80 MG CHEWABLE PO PRN (00:26)
[2019-07-21] MEDS ORDERED: WITCH HAZEL 1 EACH MED..PAD TOPICAL PRN (00:26)
[2019-07-21] MEDS ORDERED: LANOLIN CREAM 5 GM TUBE TOPICAL PRN (00:26)
[2019-07-21] MEDS ORDERED: HYDROCORTISONE 2.5% RECTAL CREAM 30 GM TUBE RECTAL PRN (00:26)
[2019-07-21] MEDS ORDERED: IBUPROFEN 600 MG TAB PO PRN (00:26)
[2019-07-21] MEDS ORDERED: diphenhydrAMINE 50 MG/ML 1 ML VIAL IVP PRN ×2 (00:26)
[2019-07-21] MEDS ORDERED: OXYTOCIN 20 UNITS/1000 ML NS 1,000 ML IV SCH (00:26)
[2019-07-21] MEDS ORDERED: ZOLPIDEM 5 MG TAB PO PRN (00:26)
[2019-07-21] MEDS ORDERED: diphenhydrAMINE 50 MG CAP PO PRN (00:26)
[2019-07-21] MEDS ORDERED: diphenhydrAMINE 25 MG CAP PO PRN (00:26)
[2019-07-21] MEDS ORDERED: BENZOCAINE/MENTHOL SPRAY 1 GM/SPRAY AEROSOL TOPICAL PRN (00:26)
[2019-07-21] MEDS: SENNOSIDES-DOCUSATE SODIUM 1 EACH TAB PO SCH ×3 (01:49→20:17)
[2019-07-21] MEDS ORDERED: Rhogam IMMUNE GLOBULIN 1,500 UNIT/1 ML IM ONE (01:51)
[2019-07-21] MEDS: ACETAMINOPHEN TAB 325 MG TAB PO PRN ×2 (02:11→11:40)
[2019-07-21 05:50] LABS: Basophils % (A) 0 %; Eosinophils # (A) 0.2 k/uL (0-0.7); Eosinophils % (A) 1 %; HCT 29.9 % (34.0-46.0); HGB 9.7 gm/dL (11.4-16.0); Hypochromasia Slight; Lymphocytes # (A) 1.8 k/uL (1.0-4.8); Lymphocytes % (A) 11 %; MCH 26.1 pg (25.0-35.0); MCHC 32.4 g/dL (31.0-37.0); MCV 80.3 fL (80.0-100.0); Mean Platelet Volume 7.5; Monocytes # (A) 0.7 k/uL (0-1.0); Monocytes % (A) 4 %; Neutrophils # (A) 14.2 k/uL (1.3-7.7); Neutrophils % (A) 83 %; Platelet Count 271 k/uL (150-450); RBC 3.73 m/uL (3.80-5.40); RDW 15.3 % (11.5-15.5); WBC 17.2 k/uL (3.8-10.6)
--- NOTE | 2019-07-21 08:18 | P.DS ---
Providers Date of admission: 07/20/19 18:28 Expected date of discharge: 07/21/19 Attending physician: Andi De La Fuente Primary care physician: Stated None - Discharge Diagnosis(es) (1) 38 weeks gestation of Current Visit: Yes Status: Acute (2) Group B Streptococcus carrier, +RV culture, currently Current Visit: Yes Status: Acute Hospital Course: This is a 34-year-old female 8 para 7 at 38-3/7 weeks who presented in active labor. She delivered vaginally a viable male on 07/20/2019 with scores of 9 at 1 minute and 9 at 5 minutes and infant weight of 5 lbs. 15 oz. Her course has been uncomplicated. Lochia is decreasing. Pain is well-controlled. She is bottle feeding. Vital signs are stable. Abdomen is soft with fundus firm and nontender. Extremities show negative Homans. Impression is status post vaginal delivery day #1. Plan is to discharge home today. The baby will be given up for adoption and the adoptive mother is present in the hospital. administrative services assistant has consulted to facilitate the adoption. She will be given a prescription for ibuprofen. She is advised follow-up Dr. De La Fuente in 6 weeks in the office. She is advised to call the office if she has any further questions or concerns prior to her appointment time. Procedures: Spontaneous vaginal delivery of a viable male infant on 07/20/2019 Patient Condition at Discharge: Stable Plan - Discharge Summary New Discharge Prescriptions: New Ibuprofen [Motrin] 600 mg PO Q6HR PRN #60 tab PRN Reason: Mild Pain Or Fever >= 100.5 Discharge Medication List Ibuprofen [Motrin] 600 mg PO Q6HR PRN #60 tab 07/21/19 [Rx] Follow up Appointment(s)/Referral(s): Andi De La Fuente DO [Doctor of Osteopathic Medicine] - 6 Weeks Discharge Disposition: HOME SELF-CARE
[2019-07-22] MEDS: ACETAMINOPHEN TAB 325 MG TAB PO PRN (03:34)
--- NOTE | 2019-07-22 08:24 | P.DS ---
Providers Date of admission: 07/20/19 18:28 Expected date of discharge: 07/22/19 Attending physician: Andi De La Fuente Primary care physician: Stated None Hospital Course: Patient doing very well this morning. No changes from yesterday's discharge summary per Dr. Zarco. All other questions are answered for her at this time and she is stable for discharge this time. Patient Condition at Discharge: Good Plan - Discharge Summary New Discharge Prescriptions: New Ibuprofen [Motrin] 600 mg PO Q6HR PRN #60 tab PRN Reason: Mild Pain Or Fever >= 100.5 Discharge Medication List Ibuprofen [Motrin] 600 mg PO Q6HR PRN #60 tab 07/21/19 [Rx] Follow up Appointment(s)/Referral(s): Andi De La Fuente DO [Doctor of Osteopathic Medicine] - 6 Weeks Discharge Disposition: HOME SELF-CARE
[2019-07-22 09:02] VITALS: BP 83/44; PULSE 56; RESP 16; TEMP 97.9
== END 2019-07-22 10:30 | disposition home or self-care (01) | DRG 807 ==
LOC: FBPOP 18:01 → 4FBP 18:28
PROVIDERS: ADMIT Obstetrics & Gynecology; ATTEND Obstetrics & Gynecology
PROC: 10E0XZZ Delivery of Products of Conception, External Approach (ICD-10-PCS; principal; 2019-07-20)
DX: O99.824 Streptococcus B carrier state complicating childbirth (principal); Z37.0 Single live birth; O99.334 Smoking (tobacco) complicating childbirth; F17.200 Nicotine dependence, unspecified, uncomplicated; O26.893 Other specified pregnancy related conditions, third trimester; Z67.41 Type O blood, Rh negative; Z3A.38 38 weeks gestation of pregnancy; Z90.49 Acquired absence of other specified parts of digestive tract; Z86.19 Personal history of other infectious and parasitic diseases
CPT/HCPCS: 59025; 84112; 85025; 85461; 86850; 86900; 86901; 88307; 99213

== ENCOUNTER 2021-01-10 17:11 | Emergency (ER) | payer OTHER ==
[2021-01-10 17:15] VITALS: RESP 18; TEMP 98.1
[2021-01-10] MEDS ORDERED: KETOROLAC 15 MG/ML 1 ML VIAL IVP STA (17:37)
[2021-01-10] MEDS ORDERED: SODIUM CHLORIDE 0.9% 1,000 ML IV STA (17:37)
--- NOTE | 2021-01-10 17:41 | ED ---
General Adult HPI - General Chief complaint: Abdominal Pain Stated complaint: abd pain Time Seen by Provider: 01/10/21 17:30 Source: patient, RN notes reviewed, old records reviewed Mode of arrival: ambulatory Limitations: no limitations - History of Present Illness Initial comments: This is a 34-year-old well-appearing white female, alert and oriented 4, presents to the emergency room with complaints of abdominal pain on the right lower quadrant is sharp and stabbing in nature. She states pain has been there for 2 days. She states it to her right upper and right lower quadrants most of the time. States worse at night. She denies any fever. No nausea vomiting or diarrhea. Had a normal bowel movement today. She denies any medical history. Surgical history of a cholecystectomy in 2005. She is a smoker. She does not drink on a daily basis. -: days(s) (2) Location: abdomen (Right lower quadrant and right upper quadrant) Radiation: non-radiation Severity scale (1-10): 5 Quality: stabbing, sharp Consistency: intermittent Improves with: none Worsens with: none Associated Symptoms: denies other symptoms Treatments Prior to Arrival: none - Related Data Home Medications Medication Instructions Recorded Confirmed No Known Home Medications 01/10/21 01/10/21 Allergies Allergy/AdvReac Type Severity Reaction Status Date / Time No Known Allergies Allergy Verified 01/10/21 17:54 Review of Systems ROS Statement: Those systems with pertinent positive or pertinent negative responses have been documented in the HPI. ROS Other: All systems not noted in ROS Statement are negative. Past Medical History Past Medical History: No Reported History Additional Past Medical History / Comment(s): Obstetric history: She has had 3 previous normal vaginal deliveries. This is her fourth and she has had care with Dr Burrell since 8 weeks. O neg, abs neg, Rub Imm, RPR NR, Hep B neg. normal 1hr glucola and she received rhogam on 12-29 at 27 weeks and 4 days. History of Any Multi-Drug Resistant Organisms: None Reported Past Surgical History: Cholecystectomy Additional Past Surgical History / Comment(s): cholecystectomy 2006 Past Anesthesia/Blood Transfusion Reactions: No Reported Reaction Past Psychological History: No Psychological Hx Reported Smoking Status: Current every day smoker Past Alcohol Use History: None Reported Past Drug Use History: None Reported - Past Family History Father Family Medical History: No Reported History General Exam Limitations: no limitations General appearance: alert, in no apparent distress Head exam: Present: atraumatic, normocephalic, normal inspection Eye exam: Present: normal appearance, PERRL, EOMI. Absent: scleral icterus, conjunctival injection, periorbital swelling ENT exam: Present: normal exam, normal oropharynx, mucous membranes moist Neck exam: Present: normal inspection, full ROM. Absent: tenderness, meningismus, lymphadenopathy Respiratory exam: Present: normal lung sounds bilaterally. Absent: respiratory distress, wheezes, rales, rhonchi, stridor Cardiovascular Exam: Present: regular rate, normal rhythm, normal heart sounds. Absent: systolic murmur, diastolic murmur, rubs, gallop, clicks GI/Abdominal exam: Present: soft, tenderness (Right lower quadrant), normal bowel sounds. Absent: distended, guarding, rebound, rigid, mass, hernia Back exam: Present: normal inspection, full ROM. Absent: tenderness, CVA tenderness (R), CVA tenderness (L), rash noted Neurological exam: Present: alert, oriented X3 Psychiatric exam: Present: normal affect, normal mood Skin exam: Present: warm, dry, intact, normal color. Absent: rash Course Vital Signs 01/10/21 01/10/21 17:12 21:39 Temperature 98.1 F Pulse Rate 68 78 Respiratory 18 18 Rate Blood Pressure 106/70 123/82 O2 Sat by Pulse 97 98 Oximetry Medical Decision Making - Medical Decision Making Ultrasound the abdomen shows no significant abnormalities in the gallbladder or common bile duct. Liver pancreas are within normal limits. There is no abnormal common bile duct dilatation. CBC and electrolytes are within normal limits. She says her pain is gone at this time. Her abdomen remained soft and nontender. She states that she did go bowling a couple of days ago and may be cause of the pain. This may be musculoskeletal pain. Patient will be directed to follow up with her primary care doctor or return to the emergency room with any new or worsening symptoms. - Lab Data Result diagrams: 01/10/21 18:14 01/10/21 18:14 Lab Results 01/10/21 01/10/21 01/10/21 Range/Units 18:14 18:14 18:14 WBC 8.9 (3.8-10.6) k/uL RBC 4.36 (3.80-5.40) m/uL Hgb 13.0 (11.4-16.0) gm/dL Hct 38.7 (34.0-46.0) % MCV 88.9 (80.0-100.0) fL MCH 29.9 (25.0-35.0) pg MCHC 33.7 (31.0-37.0) g/dL RDW 12.2 (11.5-15.5) % Plt Count 284 (150-450) k/uL MPV 7.0 Neutrophils % 68 % Lymphocytes % 22 % Monocytes % 4 % Eosinophils % 4 % Basophils % 0 % Neutrophils # 6.1 (1.3-7.7) k/uL Lymphocytes # 2.0 (1.0-4.8) k/uL Monocytes # 0.4 (0-1.0) k/uL Eosinophils # 0.4 (0-0.7) k/uL Basophils # 0.0 (0-0.2) k/uL Sodium (137-145) mmol/L Potassium (3.5-5.1) mmol/L Chloride (98-107) mmol/L Carbon Dioxide (22-30) mmol/L Anion Gap mmol/L BUN (7-17) mg/dL Creatinine (0.52-1.04) mg/dL Est GFR (CKD-EPI)AfAm (>60 ml/min/1.73 sqM) Est GFR (CKD-EPI)NonAf (>60 ml/min/1.73 sqM) Glucose (74-99) mg/dL Calcium (8.4-10.2) mg/dL Total Bilirubin (0.2-1.3) mg/dL AST (14-36) U/L ALT (4-34) U/L Alkaline Phosphatase (38-126) U/L Total Protein (6.3-8.2) g/dL Albumin (3.5-5.0) g/dL Amylase (30-110) U/L Lipase (23-300) U/L Urine Color Yellow Urine Appearance Cloudy H (Clear) Urine pH 7.0 (5.0-8.0) Ur Specific [place] 1.027 (1.001-1.035) Urine Protein Negative (Negative) Urine Glucose (UA) Negative (Negative) Urine Ketones Negative (Negative) Urine Blood Negative (Negative) Urine Nitrite Negative (Negative) Urine Bilirubin Negative (Negative) Urine Urobilinogen <2.0 (<2.0) mg/dL Ur Leukocyte Esterase Small H (Negative) Urine RBC 3 (0-5) /hpf Urine WBC 9 H (0-5) /hpf Ur Squamous Epith Cells 8 H (0-4) /hpf Urine Bacteria Few H (None) /hpf Urine Mucus Few H (None) /hpf Urine HCG, Qual Not Detected (Not Detectd) 01/10/21 Range/Units 18:14 WBC (3.8-10.6) k/uL RBC (3.80-5.40) m/uL Hgb (11.4-16.0) gm/dL Hct (34.0-46.0) % MCV (80.0-100.0) fL MCH (25.0-35.0) pg MCHC (31.0-37.0) g/dL RDW (11.5-15.5) % Plt Count (150-450) k/uL MPV Neutrophils % % Lymphocytes % % Monocytes % % Eosinophils % % Basophils % % Neutrophils # (1.3-7.7) k/uL Lymphocytes # (1.0-4.8) k/uL Monocytes # (0-1.0) k/uL Eosinophils # (0-0.7) k/uL Basophils # (0-0.2) k/uL Sodium 140 (137-145) mmol/L Potassium 4.0 (3.5-5.1) mmol/L Chloride 110 H (98-107) mmol/L Carbon Dioxide 24 (22-30) mmol/L Anion Gap 6 mmol/L BUN 14 (7-17) mg/dL Creatinine 0.70 (0.52-1.04) mg/dL Est GFR (CKD-EPI)AfAm >90 (>60 ml/min/1.73 sqM) Est GFR (CKD-EPI)NonAf >90 (>60 ml/min/1.73 sqM) Glucose 93 (74-99) mg/dL Calcium 9.3 (8.4-10.2) mg/dL Total Bilirubin 0.4 (0.2-1.3) mg/dL AST 25 (14-36) U/L ALT 14 (4-34) U/L Alkaline Phosphatase 49 (38-126) U/L Total Protein 6.8 (6.3-8.2) g/dL Albumin 3.8 (3.5-5.0) g/dL Amylase 53 (30-110) U/L Lipase 84 (23-300) U/L Urine Color Urine Appearance (Clear) Urine pH (5.0-8.0) Ur Specific [place] (1.001-1.035) Urine Protein (Negative) Urine Glucose (UA) (Negative) Urine Ketones (Negative) Urine Blood (Negative) Urine Nitrite (Negative) Urine Bilirubin (Negative) Urine Urobilinogen (<2.0) mg/dL Ur Leukocyte Esterase (Negative) Urine RBC (0-5) /hpf Urine WBC (0-5) /hpf Ur Squamous Epith Cells (0-4) /hpf Urine Bacteria (None) /hpf Urine Mucus (None) /hpf Urine HCG, Qual (Not Detectd) Disposition Clinical Impression: Abdominal pain Disposition: HOME SELF-CARE Condition: Good Instructions (If sedation given, give patient instructions): Abdominal Pain (ED) Additional Instructions: Take Tylenol and/or Motrin as needed for pain. Follow up with the primary care doctor this week. Return to the emergency room with any new or worsening symptoms including increased pain or fevers. Is patient prescribed a controlled substance at d/c from ED?: No Referrals: None,Stated [REFERRING] - 1-2 days Time of Disposition: 21:11
[2021-01-10 18:23] LABS: Basophils % (A) 0 %; Eosinophils # (A) 0.4 k/uL (0-0.7); Eosinophils % (A) 4 %; HCT 38.7 % (34.0-46.0); Lymphocytes % (A) 22 %; MCH 29.9 pg (25.0-35.0); MCHC 33.7 g/dL (31.0-37.0); MCV 88.9 fL (80.0-100.0); Monocytes # (A) 0.4 k/uL (0-1.0); Monocytes % (A) 4 %; Neutrophils # (A) 6.1 k/uL (1.3-7.7); Neutrophils % (A) 68 %; Platelet Count 284 k/uL (150-450); RBC 4.36 m/uL (3.80-5.40); RDW 12.2 % (11.5-15.5); WBC 8.9 k/uL (3.8-10.6)
[2021-01-10 18:26] LABS: Appearance,Urine Cloudy (Clear); Bacteria,Urine Few /hpf; Bilirubin,Urine Negative (Negative); Blood,Urine Negative (Negative); Color,Urine Yellow; Glucose,Urine (UA) Negative (Negative); Ketones,Urine Negative (Negative); Leukocyte Esterase,Urine Small (Negative); Mucus,Urine Few /hpf; Nitrite,Urine Negative (Negative); Protein,Urine Negative (Negative); RBC,Urine 3 /hpf (0-5); Specific Gravity,Urine 1.027 (1.001-1.035); Squamous Epithelial Cell,Urine 8 /hpf (0-4); Urobilinogen,Urine <2.0 mg/dL (<2.0); WBC,Urine 9 /hpf (0-5)
[2021-01-10 18:41] LABS: ALT 14 U/L (4-34); AST 25 U/L (14-36); African American GFR (CKD) >90 (>60 ml/min/1.73 sqM); Albumin 3.8 g/dL (3.5-5.0); Alkaline Phosphatase 49 U/L (38-126); Amylase 53 U/L (30-110); Anion Gap 6 mmol/L; Blood Urea Nitrogen 14 mg/dL (7-17); Calcium 9.3 mg/dL (8.4-10.2); Carbon Dioxide 24 mmol/L (22-30); Chloride 110 mmol/L (98-107); Glucose 93 mg/dL (74-99); Lipase 84 U/L (23-300); Non-African American GFR(CKD) >90 (>60 ml/min/1.73 sqM); Sodium 140 mmol/L (137-145); Total Bilirubin 0.4 mg/dL (0.2-1.3); Total Protein 6.8 g/dL (6.3-8.2)
--- NOTE | 2021-01-10 20:32 | US ---
EXAMINATION TYPE: US abdomen limited DATE OF EXAM: 01/10/2021 COMPARISON: NONE CLINICAL HISTORY: Abdominal pain. Hx cholecystectomy. Technique: Limited due to overlying bowel gas. EXAM MEASUREMENTS: Liver Length: 13.4 cm Gallbladder Wall: Cholecystectomy. CBD: 0.35 cm Right Kidney: 9.9 x 5.3 x 3.8 cm Pancreas: Included portion of the pancreas is normal in appearance. Liver: Normal hepatic contour and echogenicity. No hepatic mass seen. Evidence for sonographic Nicolas's sign: No CBD: Portions seen appear wnl. Right Kidney: No renal collecting system dilatation seen. No renal mass identified. Tiny linear nonsh adowing echogenic focus seen in the central kidney is likely vascular. IMPRESSION: 1. Tiny linear nonshadowing hyperechoic focus in the central kidney favored to be a vascular calcific ation. No renal collecting system dilatation. 2. Status post cholecystectomy with no significant abnormalities in the gallbladder fossa or abnormal common bile duct dilatation.
[2021-01-10 21:41] VITALS: BP 123/82; PULSE 78
== END 2021-01-10 21:41 | disposition home or self-care (01) ==
LOC: EC 17:11
DX: R10.11 Right upper quadrant pain (principal); R10.31 Right lower quadrant pain; F17.200 Nicotine dependence, unspecified, uncomplicated; Z90.49 Acquired absence of other specified parts of digestive tract
CPT/HCPCS: 36415; 80053; 82150; 83690; 85025; 81001; 81025; 76705; 99284; 96374; 96361; J1885

== ENCOUNTER 2022-03-01 19:42 | Outpatient (CLI) | payer OTHER ==
[2022-03-01 21:25] VITALS: BP 124/75; PULSE 102; RESP 16; TEMP 97.9
--- NOTE | 2022-03-02 08:40 | P.MSEPDOC ---
Presenting Problems - Arrival Data Date of Arrival on Unit: 03/01/22 Time of Arrival on Unit: 19:42 Mode of Transport: Ambulatory - Complaint OB-Reason for Admission/Chief Complaint: Pain Comment: Patient is a DOM patient accompanied by cousin and sees a Dr. Lagunas [facility] OPERATOR. out of [facility]. Patient states that she lost her mucus plug today around 1730 today. she states there was white mucuc no bleeding or blood present. Patient states that she. is also having back contractions on and off for a few days pain is 6/10. Patient denies. any leaking of fluid, no sexual intercourse in the last 24 hours. Patient states she. saw Dr. Lagunas 02/27/22. Medical History - Information : 9 Para: 8 Term: 8 : 0 Abortions: Spontaneous or Elective: 0 Number of Living Children: 8 - Gestational Age Gestational Age by ELVIN (wks/days): 38 Weeks and 4 Days - History Comment: Patient states she has had syncope with this and was told by her. FRYER OPERATOR that she is high risk but was not recommended to a high risk DrJillian or cardiology. for syncopal episodes. Review of Systems - Review of Systems Constitutional: No problems Breast: No problems ENT: No problems Cardiovascular: No problems Respiratory: No problems Gastrointestinal: No problems Genitourinary: No problems Musculoskeletal: No problems Neurological: No problems Skin: No problems Vital Signs - Temperature Temperature: 97.9 F Temperature Source: Temporal Artery Scan - Pulse Sitting Pulse Oximetery Pulse Rate: 102 Pulse Assessment Method: Pulse Oximetry - Respirations Respiratory Rate: 16 Oxygen Delivery Method: Room Air O2 Sat by Pulse Oximetry: 96 - Blood Pressure Right Arm Sitting Blood Pressure: 124/75 Blood Pressure Mean: 91 Blood Pressure Source: Automatic Cuff Medical Screen Scoring - Cervical Exam Dilation (cm): 1 Station: -3 Membranes: Intact - Uterine Contractions Intensity: Absent Resting: Soft to palpation - Assessment - Baby A Baseline FHR: 130 Heart Rate - NICHD Category: Category I (Normal) NST: Reactive Physician Notification - Physician Notified Physician Notified Date: 03/01/22 Physician Notified Time: 21:03 Physician: Marcia Singh Order Received: Yes - Notification Comment Comment: RN spoke with Dr. Singh regarding patient OB history and that she is DOM,. patient complaint, maternal and status, contractions, pain, cervical exam,. amnisure negative result, patient pain on admit to triage 6/10 lower back now on. discharge 0/10. Dr. Singh gave orders to RN to discharge patient and to have patient. follow up with primary OBGYN Dr. Lagunas from [facility]. Patient also educated to. follow up with [facility] for labor Maternal Triage Index - Non-Urgent/Priority 4 Non-Urgent Priority 4: Yes Criteria Met for Priority 4: Patient is a DOM patient accompanied by cousin and sees a Dr. Lagunas [employer] OPERATOR. out of [facility]. Patient states that she lost her mucus plug today around 1730 today. she states there was white mucuc no bleeding or blood present. Patient states that she. is also having back contractions on and off for a few days pain is 6/10. Patient denies. any leaking of fluid, no sexual intercourse in the last 24 hours. Patient states she. saw Dr. Lagunas 02/27/22. Disposition - Disposition OB Disposition: Discharge to home Discharge Date: 03/01/22 Discharge Time: 21:04 I agree with the RN Medical Screening Exam: Yes Case reviewed; plan agreed upon as documented in EMR&OBIX.: Yes Diagnosis: FALSE LABOR AT OR AFTER 37 COMPLETED WEEKS OF GESTATION
== END 2022-03-01 21:04 | disposition home or self-care (01) ==
LOC: FBPOP 19:42
PROVIDERS: ATTEND Obstetrics & Gynecology
DX: O47.1 False labor at or after 37 completed weeks of gestation (principal); Z3A.38 38 weeks gestation of pregnancy; F17.200 Nicotine dependence, unspecified, uncomplicated
CPT/HCPCS: 59025; 84112; G0463; 99213

== ENCOUNTER 2022-10-27 18:28 | Emergency (ER) | payer OTHER ==
[2022-10-27 18:58] VITALS: RESP 18
[2022-10-27] MEDS ORDERED: SODIUM CHLORIDE 0.9% 1,000 ML IV ONE ×2 (19:17→21:05)
[2022-10-27] MEDS ORDERED: ACETAMINOPHEN TAB 325 MG TAB PO STA (19:17)
[2022-10-27 20:00] LABS: Basophils % (A) 0 %; Eosinophils % (A) 0 %; HCT 35.3 % (34.0-46.0); HGB 12.4 gm/dL (11.4-16.0); Lymphocytes # (A) 1.1 k/uL (1.0-4.8); Lymphocytes % (A) 8 %; MCH 29.7 pg (25.0-35.0); MCV 84.7 fL (80.0-100.0); Mean Platelet Volume 7.6; Monocytes # (A) 0.9 k/uL (0-1.0); Monocytes % (A) 7 %; Neutrophils # (A) 10.7 k/uL (1.3-7.7); Neutrophils % (A) 82 %; Platelet Count 258 k/uL (150-450); RBC 4.17 m/uL (3.80-5.40)
[2022-10-27 20:08] LABS: ALT 37 U/L (4-34); AST 54 U/L (14-36); African American GFR (CKD) >90 (>60 ml/min/1.73 sqM); Albumin 3.4 g/dL (3.5-5.0); Alkaline Phosphatase 289 U/L (38-126); Anion Gap 13 mmol/L; Blood Urea Nitrogen 11 mg/dL (7-17); Calcium 8.9 mg/dL (8.4-10.2); Carbon Dioxide 16 mmol/L (22-30); Chloride 102 mmol/L (98-107); Glucose 100 mg/dL (74-99); Non-African American GFR(CKD) >90 (>60 ml/min/1.73 sqM); Potassium 4.2 mmol/L (3.5-5.1); Sodium 131 mmol/L (137-145); Total Bilirubin 1.1 mg/dL (0.2-1.3)
--- NOTE | 2022-10-27 22:23 | ED ---
General Adult HPI - General Chief complaint: Abdominal Pain Stated complaint: 15 weeks preg-Dizziness,abd pain Time Seen by Provider: 10/27/22 19:05 Source: patient, RN notes reviewed Mode of arrival: ambulatory Limitations: no limitations - History of Present Illness Initial comments: 37-year-old female who is presents to the emergency department with a chief complaint of right flank pain. She reports right flank pain and left lower quadrant abdominal pain the last 4 days. She describes as a sharp pain. Is worse with movement. She has not taken anything for his symptoms. She's never had this before. She does report she is approximately 15 weeks . She denies any known applications with her pregnancies. Denies any dizziness, lightheaded, headache, nausea vomiting, no bleeding, vaginal cramping, low back pain - Related Data Previous Rx's Medication Instructions Recorded Cephalexin [Keflex] 1,000 mg PO BID 14 Days #28 cap 10/27/22 Allergies Allergy/AdvReac Type Severity Reaction Status Date / Time No Known Allergies Allergy Verified 10/27/22 18:37 Review of Systems ROS Statement: Those systems with pertinent positive or pertinent negative responses have been documented in the HPI. ROS Other: All systems not noted in ROS Statement are negative. Past Medical History Past Medical History: No Reported History Additional Past Medical History / Comment(s): Obstetric history: She has had 3 previous normal vaginal deliveries. This is her fourth and she has had care with Dr Burrell since 8 weeks. O neg, abs neg, Rub Imm, RPR NR, Hep B neg. normal 1hr glucola and she received rhogam on -7 at 27 weeks and 4 days. History of Any Multi-Drug Resistant Organisms: None Reported Past Surgical History: Cholecystectomy Additional Past Surgical History / Comment(s): cholecystectomy 2006 Past Anesthesia/Blood Transfusion Reactions: No Reported Reaction Past Psychological History: No Psychological Hx Reported Smoking Status: Never smoker Past Alcohol Use History: None Reported Past Drug Use History: None Reported - Past Family History Father Family Medical History: No Reported History General Exam - General Exam Comments Initial Comments: General: Alert, in no acute distress Head: atraumatic normocephalic. Eyes PERRL, EOMI intact, mucous membranes moist Respiratory: Lungs clear to auscultation bilaterally Cardiovascular: Heart rate regular rate and rhythm Abdominal: Soft without guarding or rebound Extremities: Normal inspection with full range of motion and normal capillary refill Neuroogic: alert and oriented 3, CN II-XII intact, able to ambulate with steady gait Skin: warm dry and intact with normal color Limitations: no limitations Course Vital Signs 10/27/22 10/27/22 10/27/22 18:35 18:56 23:23 Temperature 99.9 F H 97.9 F Pulse Rate 131 H 114 H 71 Respiratory 20 18 18 Rate Blood Pressure 94/67 107/69 94/57 O2 Sat by Pulse 96 97 98 Oximetry - Reevaluation(s) Reevaluation #1: 10/27/22 23:[address] Matthews who was in the emergency department. She amna mmends discharging the patient home with prescription for Keflex with recommended close follow-up with VISITING TEACHER. Medical Decision Making - Medical Decision Making Was pt. sent in by a medical professional or institution (, PA, LINE OPERATOR, urgent care, hospital, or [facility]...) When possible be specific @ -[No] Did you speak to anyone other than the patient for history (EMS, parent, family, police, friend...)? What history was obtained from this source @ -[No] Did you review nursing and triage notes (agree or disagree)? Why? @ -[I reviewed and agree with nursing and triage notes] Were old charts reviewed (outside hosp., previous admission, EMS record, old EKG, old radiological studies, urgent care reports/EKG's, [facility] records)? Report findings @ -[No old charts were reviewed] Differential Diagnosis (chest pain, altered mental status, abdominal pain women, abdominal pain men, vaginal bleeding, weakness, fever, dyspnea, syncope, headache, dizziness, GI bleed, back pain, seizure, CVA, palpatations, mental health, musculoskeletal)? @ -[not applicable] EKG interpreted by me (3pts min.). @ -[As above] X-rays interpreted by me (1pt min.). @ -[None done] CT interpreted by me (1pt min.). @ -[None done] U/S interpreted by me (1pt. min.). @ -[None done] What testing was considered but not performed or refused? (CT, X-rays, U/S, labs)? Why? @ -CT was considered however patient is and there is no marked CVA tenderness What meds were considered but not given or refused? Why? @ -[None] Did you discuss the management of the patient with other professionals (professionals i.e. , PA, LINE OPERATOR, lab, RT, psych nurse, social sciences professor, system support developer, teacher, customs and immigration officer, case specialist)? Give summary @ -[No] Was smoking cessation discussed for >3mins.? @ -[No] Was critical care preformed (if so, how long)? @ -[No] Were there social determinants of health that impacted care today? How? (Homelessness, low income, unemployed, alcoholism, drug addiction, transportation, low edu. Level, literacy, decrease access to med. care, mcc, rehab)? @ -[No] Was there de-escalation of care discussed even if they declined (Discuss DNR or withdrawal of care, Hospice)? DNR status @ -[No] What co-morbidities impacted this encounter? (DM, HTN, Smoking, COPD, CAD, Cancer, CVA, ARF, Chemo, Hep., AIDS, mental health diagnosis, sleep apnea, morbid obesity)? @ -[None] Was patient admitted / discharged? Hospital course, mention meds given and route, prescriptions, significant lab abnormalities, going to OR and other pertinent info. @ -Discharge. This is a 37-year-old female with a past medical history significant for 15 weeks' gestation who presents the emergency department with flank pain. Patient had a thorough history and physical exam performed on the emergency department. Patient is nontoxic and non-ill appearing. Abdomen is gravid. Patient had low-grade fever of 99.9 on initial history and physical. Patient had lab work which revealed WBC 13.0, hemoglobin 12.4 sodium 131, potassium 4.2 BUNs 11, creatinine 0.67 Urinalysis reveals cloudy urine with positive nitrates, large amount of leukocyte Estrace, high WBCs I discussed the results in detail the patient verbalized understanding all questions were addressed. Case was discussed with OB backshoe person Dr. Matthews who recommends starting the patient on Keflex with close follow-up with patient's primary OB in 1-2 days. Patient was given Tylenol and 1 L of IV fluids and panic relief. She'll be discharged home in stable condition. Return precautions were discussed. Case discussed with OBDULIA Moulton who agrees with plan of care Undiagnosed new problem with uncertain prognosis? @ -[No] Drug Therapy requiring intensive monitoring for toxicity (Heparin, Nitro, Insulin, Cardizem)? @ -[No] Were any procedures done? @ -[No] Diagnosis/symptom? @ -Right flank pain -Pyelonephritis in Acute, or Chronic, or Acute on Chronic? @ -Acute Uncomplicated (without systemic symptoms) or Complicated (systemic symptoms)? @ -Uncomplicated Side effects of treatment? @ -[No] Exacerbation, Progression, or Severe Exacerbation? @ -[No] Poses a threat to life or bodily function? How? (Chest pain, [place], [place], pneumonia, PE, COPD, DKA, ARF, appy, cholecystitis, CVA, Diverticulitis, Homicidal, Suicidal, threat to staff... and all critical care pts) @ -Moderate likelihood - Lab Data Result diagrams: 10/27/22 19:47 10/27/22 19:47 Lab Results 10/27/22 10/27/22 10/27/22 Range/Units 19:47 19:47 19:47 WBC 13.0 H (3.8-10.6) k/uL RBC 4.17 (3.80-5.40) m/uL Hgb 12.4 (11.4-16.0) gm/dL Hct 35.3 (34.0-46.0) % MCV 84.7 (80.0-100.0) fL MCH 29.7 (25.0-35.0) pg MCHC 35.0 (31.0-37.0) g/dL RDW 13.0 (11.5-15.5) % Plt Count 258 (150-450) k/uL MPV 7.6 Neutrophils % 82 % Lymphocytes % 8 % Monocytes % 7 % Eosinophils % 0 % Basophils % 0 % Neutrophils # 10.7 H (1.3-7.7) k/uL Lymphocytes # 1.1 (1.0-4.8) k/uL Monocytes # 0.9 (0-1.0) k/uL Eosinophils # 0.0 (0-0.7) k/uL Basophils # 0.0 (0-0.2) k/uL Sodium 131 L (137-145) mmol/L Potassium 4.2 (3.5-5.1) mmol/L Chloride 102 (98-107) mmol/L Carbon Dioxide 16 L (22-30) mmol/L Anion Gap 13 mmol/L BUN 11 (7-17) mg/dL Creatinine 0.67 (0.52-1.04) mg/dL Est GFR (CKD-EPI)AfAm >90 (>60 ml/min/1.73 sqM) Est GFR (CKD-EPI)NonAf >90 (>60 ml/min/1.73 sqM) Glucose 100 H (74-99) mg/dL Calcium 8.9 (8.4-10.2) mg/dL Total Bilirubin 1.1 (0.2-1.3) mg/dL AST 54 H (14-36) U/L ALT 37 H (4-34) U/L Alkaline Phosphatase 289 H (38-126) U/L Total Protein 7.0 (6.3-8.2) g/dL Albumin 3.4 L (3.5-5.0) g/dL Urine Color Yellow Urine Appearance Cloudy H (Clear) Urine pH 5.5 (5.0-8.0) Ur Specific [place] 1.009 (1.001-1.035) Urine Protein Trace H (Negative) Urine Glucose (UA) Negative (Negative) Urine Ketones 1+ H (Negative) Urine Blood Trace H (Negative) Urine Nitrite Positive H (Negative) Urine Bilirubin Negative (Negative) Urine Urobilinogen <2.0 (<2.0) mg/dL Ur Leukocyte Esterase Large H (Negative) Urine RBC 13 H (0-5) /hpf Urine WBC 91 H (0-5) /hpf Urine WBC Clumps Occasional H (None) /hpf Ur Squamous Epith Cells 2 (0-4) /hpf Urine Bacteria Many H (None) /hpf Urine Mucus Few H (None) /hpf Influenza Type A (PCR) (Not Detectd) Influenza Type B (PCR) (Not Detectd) RSV (PCR) (Not Detectd) SARS-CoV-2 (PCR) (Not Detectd) 10/27/22 Range/Units 19:47 WBC (3.8-10.6) k/uL RBC (3.80-5.40) m/uL Hgb (11.4-16.0) gm/dL Hct (34.0-46.0) % MCV (80.0-100.0) fL MCH (25.0-35.0) pg MCHC (31.0-37.0) g/dL RDW (11.5-15.5) % Plt Count (150-450) k/uL MPV Neutrophils % % Lymphocytes % % Monocytes % % Eosinophils % % Basophils % % Neutrophils # (1.3-7.7) k/uL Lymphocytes # (1.0-4.8) k/uL Monocytes # (0-1.0) k/uL Eosinophils # (0-0.7) k/uL Basophils # (0-0.2) k/uL Sodium (137-145) mmol/L Potassium (3.5-5.1) mmol/L Chloride (98-107) mmol/L Carbon Dioxide (22-30) mmol/L Anion Gap mmol/L BUN (7-17) mg/dL Creatinine (0.52-1.04) mg/dL Est GFR (CKD-EPI)AfAm (>60 ml/min/1.73 sqM) Est GFR (CKD-EPI)NonAf (>60 ml/min/1.73 sqM) Glucose (74-99) mg/dL Calcium (8.4-10.2) mg/dL Total Bilirubin (0.2-1.3) mg/dL AST (14-36) U/L ALT (4-34) U/L Alkaline Phosphatase (38-126) U/L Total Protein (6.3-8.2) g/dL Albumin (3.5-5.0) g/dL Urine Color Urine Appearance (Clear) Urine pH (5.0-8.0) Ur Specific [place] (1.001-1.035) Urine Protein (Negative) Urine Glucose (UA) (Negative) Urine Ketones (Negative) Urine Blood (Negative) Urine Nitrite (Negative) Urine Bilirubin (Negative) Urine Urobilinogen (<2.0) mg/dL Ur Leukocyte Esterase (Negative) Urine RBC (0-5) /hpf Urine WBC (0-5) /hpf Urine WBC Clumps (None) /hpf Ur Squamous Epith Cells (0-4) /hpf Urine Bacteria (None) /hpf Urine Mucus (None) /hpf Influenza Type A (PCR) Not Detected (Not Detectd) Influenza Type B (PCR) Not Detected (Not Detectd) RSV (PCR) Not Detected (Not Detectd) SARS-CoV-2 (PCR) Not Detected (Not Detectd) Disposition Clinical Impression: Flank pain, Left lower quadrant pain, Pyelonephritis Disposition: HOME SELF-CARE Condition: Stable Additional Instructions: Please take antibiotics as prescribed Please follow-up with her VISITING TEACHER in 1-2 days Prescriptions: Cephalexin [Keflex] 1,000 mg PO BID 14 Days #28 cap Is patient prescribed a controlled substance at d/c from ED?: No Referrals: Lupe Lagunas DO [Primary Care Provider] - 1-2 days Time of Disposition: 23:38
[2022-10-27 22:31] LABS: Appearance,Urine Cloudy (Clear); Bacteria,Urine Many /hpf; Bilirubin,Urine Negative (Negative); Blood,Urine Trace (Negative); Color,Urine Yellow; Glucose,Urine (UA) Negative (Negative); Ketones,Urine 1+ (Negative); Leukocyte Esterase,Urine Large (Negative); Mucus,Urine Few /hpf; Nitrite,Urine Positive (Negative); PH, Urine 5.5 (5.0-8.0); Protein,Urine Trace (Negative); RBC,Urine 13 /hpf (0-5); Specific Gravity,Urine 1.009 (1.001-1.035); Squamous Epithelial Cell,Urine 2 /hpf (0-4); Urobilinogen,Urine <2.0 mg/dL (<2.0); WBC,Urine 91 /hpf (0-5)
[2022-10-27 23:24] VITALS: BP 94/57; PULSE 71; TEMP 97.9
[2022-10-27] MEDS ORDERED: CEPHALEXIN 500 MG CAP PO STA ×2 (23:38→23:39)
== END 2022-10-27 23:59 | disposition home or self-care (01) ==
LOC: EC 18:28
DX: O23.02 Infections of kidney in pregnancy, second trimester (principal); Z20.822 Contact with and (suspected) exposure to COVID-19; Z90.49 Acquired absence of other specified parts of digestive tract; Z3A.15 15 weeks gestation of pregnancy
CPT/HCPCS: 36415; 80053; 81001; 85025; 87636; 96360; 96361; 99284

== ENCOUNTER 2023-03-29 02:49 | Outpatient (CLI) | payer OTHER ==
[2023-03-29 04:42] VITALS: BP 117/73; PULSE 108; RESP 16; TEMP 98.3
--- NOTE | 2023-05-01 13:32 | P.MSEPDOC ---
Presenting Problems - Arrival Data Date of Arrival on Unit: 03/29/23 Time of Arrival on Unit: 02:49 Mode of Transport: Ambulatory - Complaint OB-Reason for Admission/Chief Complaint: Possible Onset of Labor Comment: Patient presents to triage with complaints of back contractions that started 2 hours prior to arriving in triage. Medical History - Information : 10 Para: 9 Term: 9 : 0 Abortions: Spontaneous or Elective: 0 Number of Living Children: 9 - Gestational Age Gestational Age by ELVIN (wks/days): 36 Weeks and 5 Days Review of Systems - Review of Systems Constitutional: No problems Breast: No problems ENT: No problems Cardiovascular: No problems Respiratory: No problems Gastrointestinal: No problems Genitourinary: No problems Musculoskeletal: No problems Neurological: No problems Skin: No problems Vital Signs - Temperature Temperature: 98.3 F Temperature Source: Axillary - Pulse Pulse Oximetery Pulse Rate: 108 Pulse Assessment Method: Pulse Oximetry - Respirations Respiratory Rate: 16 Oxygen Delivery Method: Room Air O2 Sat by Pulse Oximetry: 96 - Blood Pressure Right Arm Blood Pressure: 117/73 Blood Pressure Mean: 87 Blood Pressure Source: Automatic Cuff Physician Notification - Physician Notified Physician Notified Date: 03/29/23 Physician Notified Time: 03:38 Physician: Caitlyn Chávez Maternal Triage Index - Maternal Triage Index Presenting for scheduled procedure w/no complaint: No - Stat/Priority 1 Stat Priority 1: No - Urgent/Priority 2 Urgent Priority 2: No - Prompt/Priority 3 Prompt Priority 3: Yes Criteria Met for Priority 3: Patient presents to triage with complaints of back contractions that started 2 hours prior to arriving in triage. Disposition - Disposition OB Disposition: Discharge to home Discharge Date: 03/29/23 Discharge Time: 04:24 I agree with the RN Medical Screening Exam: Yes Case reviewed; plan agreed upon as documented in EMR&OBIX.: Yes Diagnosis: FALSE LABOR BEFORE 37 COMPLETED WEEKS OF GEST, THIRD TRI
== END 2023-03-29 04:25 ==
LOC: FBPOP 02:49
PROVIDERS: ATTEND Obstetrics & Gynecology Obstetrics
DX: O47.03 False labor before 37 completed weeks of gestation, third trimester (principal); O99.333 Smoking (tobacco) complicating pregnancy, third trimester; F17.200 Nicotine dependence, unspecified, uncomplicated; Z3A.36 36 weeks gestation of pregnancy
CPT/HCPCS: 59025; 84112; G0463; 99213

== ENCOUNTER 2023-04-11 00:08 | Inpatient (IN) | payer OTHER ==
[2023-04-11] MEDS ORDERED: METHYLERGONOVINE 0.2 MG/ML 1 ML AMP IM PRN (00:26)
[2023-04-11] MEDS ORDERED: CARBOPROST TROMETHAMINE 250 MCG/ML 1 ML AMP IM PRN (00:26)
[2023-04-11] MEDS ORDERED: TRANEXAMIC 1,000 MG/100ML-NACL 1,000 MG in EMPTY BAG 1 BAG IV PRN (00:26)
[2023-04-11] MEDS ORDERED: LIDOCAINE 0.5% (PF) 5 MG/ML (50 ML SDV) SQ PRN (00:26)
[2023-04-11] MEDS ORDERED: TERBUTALINE 1 MG/ML VIAL SQ PRN (00:26)
[2023-04-11] MEDS ORDERED: OXYTOCIN 10 UNIT/ML 1 ML VIAL IM PRN (00:26)
[2023-04-11] MEDS ORDERED: miSOPROStoL 200 MCG TAB PO PRN (00:26)
[2023-04-11] MEDS ORDERED: OXYTOCIN 30 UNITS/500 ML NS 30 UNIT in SALINE 1 500ML.BAG IV SCH ×2 (00:30→09:29)
[2023-04-11] MEDS ORDERED: AMPICILLIN 2,000 MG in SODIUM CHLORIDE 0.9% 100 ML IVPB ONE (00:30)
--- NOTE | 2023-04-11 00:37 | P.HPOB ---
History of Present Illness H&P Date: 04/11/23 Chief Complaint: Leaking of fluid This patient is a 38-year-old 10 para 9 female with stated estimated date of confinement 04/21/2023 estimated gestational age 38-4/7 weeks who presents to triage with complaints of leaking fluid earlier this evening. Patient's care is not at this facility is with Dr. Dolan. [place]. Patient states that she has had genetic testing due to her age and it was negative for a boy. She indicates that she had a positive group B strep and that she did pass her diabetes test. There are no records available to me at this time. I did review her records from previous admissions at this hospital shows she is Rh- and has a history of noncompliance and also only has custody of one of her other children. Last delivery was here by Dr. Singh. Evaluation here shows gross rupture membranes at 4 cm dilated. Review of Systems Genitourinary: Reports Menstruation: Reports amenorrhea Past Medical History Past Medical History: No Reported History Additional Past Medical History / Comment(s): Obstetric history: She has had 9 previous vaginal deliveries History of Any Multi-Drug Resistant Organisms: None Reported Past Surgical History: Cholecystectomy Additional Past Surgical History / Comment(s): cholecystectomy 2006 Past Anesthesia/Blood Transfusion Reactions: No Reported Reaction Smoking Status: Vaper - Past Family History Father Family Medical History: No Reported History Medications and Allergies Home Medications Medication Instructions Recorded Confirmed Type Vit No.179/Iron/Folic 1 each PO DAILY 03/29/23 03/29/23 History [ Tablet] Allergies Allergy/AdvReac Type Severity Reaction Status Date / Time No Known Allergies Allergy Verified 10/27/22 18:37 Exam Intake and Output 04/10/23 04/10/23 04/11/23 14:59 22:59 06:59 Other: Weight 92.986 kg - OBG Physical Exam Abdomen: bowel sounds normal, no diffuse tenderness, no bruit present, no guarding noted, no hepatomegaly, no splenomegaly, no mass Vulva: both: normal Vagina: no discharge Cervix: no lesion (Cervix is 4 cm dilated and effaced), no discharge Uterus: enlarged Assessment and Plan Assessment: This is a 38-year-old 10 para 9 female 38-1/2 weeks gestation by stated due date who presents to labor and delivery with spontaneous rupture membranes and no care at this facility. Patient does report a positive group B strep culture and records indicate she has a previous history of positive group B strep. Plan at this time is antibiotic prophylaxis and anticipate vaginal delivery. We will do blood work on her and she will need a social service coordinator consult due to custody problems with her previous children. (1) Spontaneous rupture of amniotic membranes Current Visit: Yes Status: Acute Code(s): XSM5653 - SNOMED Code(s): 711033146 (2) No care in current in third trimester Current Visit: Yes Status: Acute Code(s): O09.33 - SUPRVSN OF PREG W INSUFFICIENT ANTENAT CARE, THIRD TRIMESTER SNOMED Code(s): 868578145 (3) Elderly multigravida Current Visit: Yes Status: Acute Code(s): O09.529 - SUPERVISION OF ELDERLY MULTIGRAVIDA, UNSPECIFIED TRIMESTER SNOMED Code(s): 792118056 (4) 38 weeks gestation of Current Visit: No Status: Acute Code(s): Z3A.38 - 38 WEEKS GESTATION OF SNOMED Code(s): 32320568 (5) Group B Streptococcus carrier, +RV culture, currently Current Visit: No Status: Acute Code(s): O99.820 - STREPTOCOCCUS B CARRIER STATE COMPLICATING SNOMED Code(s): 1157957715547
[2023-04-11] MEDS ORDERED: NALBUPHINE 10 MG/ML (10 ML MDV) IV PRN (00:40)
[2023-04-11] MEDS: LACTATED RINGERS 1,000 ML IV SCH ×2 (00:42→08:44)
[2023-04-11 01:08] LABS: Basophils % (A) 0 %; Eosinophils # (A) 0.1 k/uL (0-0.7); Eosinophils % (A) 1 %; HCT 28.8 % (34.0-46.0); Hypochromasia Moderate; Lymphocytes # (A) 1.2 k/uL (1.0-4.8); Lymphocytes % (A) 11 %; MCH 24.5 pg (25.0-35.0); MCHC 31.4 g/dL (31.0-37.0); MCV 78.1 fL (80.0-100.0); Mean Platelet Volume 8.2; Monocytes # (A) 0.6 k/uL (0-1.0); Monocytes % (A) 5 %; Neutrophils # (A) 8.6 k/uL (1.3-7.7); Neutrophils % (A) 80 %; Platelet Count 297 k/uL (150-450); Poikilocytosis Slight; RBC 3.69 m/uL (3.80-5.40); RDW 15.4 % (11.5-15.5); WBC 10.8 k/uL (3.8-10.6)
[2023-04-11 01:18] LABS: Appearance,Urine Cloudy (Clear); Bacteria,Urine Rare /hpf; Bilirubin,Urine 1+ (Negative); Blood,Urine Negative (Negative); Color,Urine Orange; Glucose,Urine (UA) Negative (Negative); Ketones,Urine Negative (Negative); Leukocyte Esterase,Urine Small (Negative); Mucus,Urine Moderate /hpf; Nitrite,Urine Negative (Negative); PH, Urine 6.5 (5.0-8.0); Protein,Urine 1+ (Negative); RBC,Urine 4 /hpf (0-5); Squamous Epithelial Cell,Urine 8 /hpf (0-4); WBC,Urine 10 /hpf (0-5)
[2023-04-11 01:47] LABS: Amphetamine Screen,Urine Not Detected (NotDetected); Barbiturate Screen,Urine Not Detected (NotDetected); Benzodiazepines Screen,Urine Not Detected (NotDetected); Cocaine Screen,Urine Not Detected (NotDetected); Methadone Screen, Urine Not Detected (NotDetected); Opiate Screen,Urine Not Detected (NotDetected); Oxycodone Screen, Urine Not Detected (NotDetected); Phencyclidine Screen,Urine Not Detected (NotDetected); Tricyclic Antidepressant,Urine Not Detected (NotDetected); Urn Cannabinoid Scrn Not Detected (NotDetected)
[2023-04-11] MEDS: AMPICILLIN 1,000 MG in SODIUM CHLORIDE 0.9% 50 ML IVPB SCH ×2 (04:34→08:29)
--- NOTE | 2023-04-11 06:57 | P.MSEPDOC ---
Presenting Problems - Arrival Data Date of Arrival on Unit: 04/11/23 Time of Arrival on Unit: 00:20 Mode of Transport: Wheelchair - Complaint OB-Reason for Admission/Chief Complaint: Rule Out SROM Comment: pt. present to triage due to SROM at 2330, pt. grossly ruptured Medical History - Information : 10 Para: 9 Term: 9 : 0 Abortions: Spontaneous or Elective: 0 Number of Living Children: 9 - Gestational Age Gestational Age by ELVIN (wks/days): 38 Weeks and 4 Days - History Complications: GBS+, Smoker Review of Systems - Review of Systems Constitutional: No problems Breast: No problems ENT: No problems Cardiovascular: No problems Respiratory: No problems Gastrointestinal: No problems Genitourinary: No problems Musculoskeletal: No problems Neurological: No problems Skin: No problems Vital Signs - Temperature Temperature: 97.2 F Temperature Source: Temporal Artery Scan - Pulse Pulse Oximetery Pulse Rate: 94 Pulse Assessment Method: Automatic Cuff - Respirations Respiratory Rate: 16 Oxygen Delivery Method: Room Air O2 Sat by Pulse Oximetry: 98 - Blood Pressure Right Arm Blood Pressure: 120/79 Blood Pressure Mean: 92 Blood Pressure Source: Automatic Cuff Medical Screen Scoring - Cervical Exam Dilation (cm): 4 Station: -2 Membranes: Ruptured - Assessment - Baby A Baseline FHR: 135 Heart Rate - NICHD Category: Category I (Normal) NST: Reactive Physician Notification - Physician Notified Physician Notified Date: 04/11/23 Physician Notified Time: 00:08 Physician: Yaw Burrell New Order Received: Yes - Notification Comment Comment: admit for labor Maternal Triage Index - Maternal Triage Index Presenting for scheduled procedure w/no complaint: No - Stat/Priority 1 Stat Priority 1: No - Urgent/Priority 2 Urgent Priority 2: Yes Provider Notified: Yaw Burrell Provider Notified Time: 00:08 Criteria Met for Priority 2: SROM pt. grossly ruptured, 38.4 Disposition - Disposition OB Disposition: Admit I agree with the RN Medical Screening Exam: Yes Case reviewed; plan agreed upon as documented in EMR&OBIX.: Yes Diagnosis: ENCOUNTER FOR FULL-TERM UNCOMPLICATED DELIVERY
[2023-04-11] MEDS ORDERED: SIMETHICONE 80 MG CHEWABLE PO PRN (09:29)
[2023-04-11] MEDS ORDERED: HYDROCORTISONE 2.5% RECTAL CREAM 30 GM TUBE RECTAL PRN (09:29)
[2023-04-11] MEDS ORDERED: LANOLIN CREAM 5 GM TUBE TOPICAL PRN (09:29)
[2023-04-11] MEDS ORDERED: diphenhydrAMINE 25 MG CAP PO PRN (09:29)
[2023-04-11] MEDS ORDERED: BENZOCAINE/MENTHOL SPRAY 1 GM/SPRAY AEROSOL TOPICAL PRN (09:29)
[2023-04-11] MEDS ORDERED: ZOLPIDEM 5 MG TAB PO PRN (09:29)
[2023-04-11] MEDS ORDERED: bisacodyL 10 MG SUPP RECTAL PRN (09:29)
[2023-04-11] MEDS ORDERED: diphenhydrAMINE 50 MG/ML 1 ML VIAL IVP PRN (09:29)
[2023-04-11] MEDS: IBUPROFEN 600 MG TAB PO PRN ×2 (09:43→20:32)
[2023-04-11 09:50] LABS: Hepatitis B Surface Antigen Nonreactive
[2023-04-11] MEDS: ACETAMINOPHEN TAB 325 MG TAB PO PRN ×2 (10:54→23:42)
[2023-04-11] MEDS: SENNOSIDES-DOCUSATE SODIUM 1 EACH TAB PO SCH ×2 (10:55→20:33)
--- NOTE | 2023-04-11 12:05 | P.PROBDLV ---
Vaginal Delivery Note - . Vaginal Delivery Note: Normal spontaneous vaginal delivery viable male infant Apgars 9 and 9 delivery time 0908 hrs. Please see dictated H&P for intimate details of this patient's admission. Brief summary this is a 38-year-old 10 para 9 female estimated gestational age 38-1/2 weeks per reported EDC who presented to labor and delivery with spontaneous rupture membranes. Patient's had no care at this facility. Patient did report a positive group B strep culture and therefore started on IV antibiotics. She has Pitocin augmentation of labor and received one dose of Nubain for pain control per her request. Patient's does begin having some bleeding after she gets to approximately 6 cm dilated and is thought that there is most likely a partial abruption. heart tones are reassuring and patient progresses quickly. She gets to complete and with 1 push and pushes the head over the intact perineum in a controlled fashion. Mouth and nares are bulb suctioned. Infant's head is straight occiput anterior presentation. With gentle downward traction we then have deliver the anterior and posterior shoulder and rest this infant's body. This is a vigorous viable male Apgars are 9 and 9 delivery time is 0908 hrs. After delivery of the infant, the is laid on the mother's abdomen. After the cord is done pulsating, the umbilical cord is doubly clamped and cut. It appears to be trivascular. The placenta is then spontaneously delivered intact. There is approximately 5 cm dark clot at the placental edge consistent with a partial placental abruption. Placenta sent to pathology. Inspection of perineum shows no laceration and no repairs required. I did give her 1 dose of Methergine because she is having some mild atony and she is a grand multipara. Estimated blood loss deliveries proximally 200 mL. All counts are correct 3. There are no complications. and mother are stable in delivery room.
[2023-04-11] MEDS ORDERED: Rhogam IMMUNE GLOBULIN 1,500 UNIT/1 ML IM ONE (16:03)
[2023-04-11 16:46] LABS: HIV 2 AB Non-Reactive (Non-Reactive); HIV AB P24 Non-Reactive (Non-Reactive); HIV P24 AG Non-Reactive (Non-Reactive)
[2023-04-12] MEDS: IBUPROFEN 600 MG TAB PO PRN ×2 (04:07→11:27)
--- NOTE | 2023-04-12 06:48 | P.PNOBGVD ---
Subjective - Subjective Patient reports: Reports appetite normal, Reports voiding normally, Reports pain well controlled, Reports ambulating normally [place]: doing well Objective - Latest Vital Signs Latest vital signs: Vital Signs Temp Pulse Resp BP Pulse Ox 04/12/23 04:07 98.2 F 75 14 102/61 98 04/11/23 23:46 98.0 F 76 16 101/65 98 04/11/23 20:31 98.3 F 78 14 100/64 98 04/11/23 16:30 97.6 F 80 16 91/64 04/11/23 11:25 70 16 106/72 04/11/23 10:50 71 16 107/70 04/11/23 10:15 71 16 101/74 04/11/23 10:00 68 16 112/77 04/11/23 09:45 67 16 119/66 04/11/23 09:30 76 16 125/69 04/11/23 09:15 98.4 F 80 16 124/58 04/11/23 06:57 97.2 F L 94 16 120/79 98 Intake and Output 04/11/23 04/11/23 04/12/23 14:59 22:59 06:59 Output Total 60 Balance -60 Output: Output, Quantitative 60 Blood Loss Other: # Voids 0 1 - Exam Lungs: bilateral: normal Chest: Normal S1, Normal S2 Extremities: Present: normal Abdomen: Present: normal appearance, soft Uterus: Present: normal, firm - Labs Labs: Abnormal Lab Results - Last 24 Hours (Table) 04/11/23 Range/Units 00:37 Rubella IgG Antibody 56.30 H (0.00-9.00) IU/mL Assessment and Plan Assessment: day #1. Patient is resting without complaints and wishes to go home. Vital signs are stable she is afebrile. Uterus is firm nontender and she is having normal lochia. CBC is pending at time of this dictation. Plan today is to check CBC, continue routine postoperative care, and also urge home later today she will follow up with her primary manager test (1) Spontaneous rupture of amniotic membranes Current Visit: Yes Status: Acute Code(s): JTG5035 - SNOMED Code(s): 315818124 (2) No care in current in third trimester Current Visit: Yes Status: Acute Code(s): O09.33 - SUPRVSN OF PREG W INSUFFICIENT ANTENAT CARE, THIRD TRIMESTER SNOMED Code(s): 428485383 (3) Elderly multigravida Current Visit: Yes Status: Acute Code(s): O09.529 - SUPERVISION OF ELDERLY MULTIGRAVIDA, UNSPECIFIED TRIMESTER SNOMED Code(s): 014198730 (4) 38 weeks gestation of Current Visit: No Status: Acute Code(s): Z3A.38 - 38 WEEKS GESTATION OF SNOMED Code(s): 97750656 (5) Group B Streptococcus carrier, +RV culture, currently Current Visit: No Status: Acute Code(s): O99.820 - STREPTOCOCCUS B CARRIER STATE COMPLICATING SNOMED Code(s): 7029625910680
[2023-04-12] MEDS ORDERED: FERROUS SULFATE 325 MG TAB PO SCH (07:30)
[2023-04-12 07:35] LABS: Basophils % (A) 0 %; Eosinophils # (A) 0.2 k/uL (0-0.7); Eosinophils % (A) 2 %; HCT 21.7 % (34.0-46.0); Hypochromasia Moderate; Lymphocytes # (A) 2.3 k/uL (1.0-4.8); Lymphocytes % (A) 22 %; MCH 26.1 pg (25.0-35.0); MCV 79.3 fL (80.0-100.0); Mean Platelet Volume 8.4; Monocytes # (A) 0.4 k/uL (0-1.0); Monocytes % (A) 4 %; Neutrophils # (A) 6.9 k/uL (1.3-7.7); Neutrophils % (A) 68 %; Platelet Count 263 k/uL (150-450); Poikilocytosis Slight; RBC 2.74 m/uL (3.80-5.40); RDW 15.8 % (11.5-15.5); WBC 10.2 k/uL (3.8-10.6)
[2023-04-12 07:46] LABS: HGB 7.2 gm/dL (11.4-16.0)
[2023-04-12] MEDS: SENNOSIDES-DOCUSATE SODIUM 1 EACH TAB PO SCH (08:24)
[2023-04-12] MEDS: ACETAMINOPHEN TAB 325 MG TAB PO PRN (08:26)
[2023-04-12 08:52] VITALS: BP 92/50; PULSE 76; RESP 16; TEMP 97.4
[2023-04-12 14:21] LABS: N. gonorrhoeae,PCR Negative (Negative)
[2023-04-12 14:30] LABS: C. trachomatis,PCR Negative (Negative)
--- NOTE | 2023-04-16 06:21 | P.DS ---
Providers Date of admission: 04/11/23 00:20 Expected date of discharge: 04/12/23 Attending physician: Yaw Burrell Primary care physician: Stated None - Discharge Diagnosis(es) (1) Spontaneous rupture of amniotic membranes Status: Acute (2) No care in current in third trimester Status: Acute (3) Elderly multigravida Status: Acute (4) 38 weeks gestation of Status: Acute (5) Group B Streptococcus carrier, +RV culture, currently Status: Acute Hospital Course: Please see dictated H&P and delivery on this patient's admission. In brief summary this is a 38-year-old 10 para 9 female 38 and half weeks gestation admitted to labor and delivery patient was on to have a vaginal delivery of viable . Please see dictated delivery note. with spontaneous rupture membranes and no care at this facility. Patient was on have a vaginal delivery of viable infant. Please see dictated delivery note. On day #1 patient's felt be stable for discharge home follow up with her primary bottle filler in 6 weeks. Procedures: Normal spontaneous vaginal delivery Patient Condition at Discharge: Good Plan - Discharge Summary New Discharge Prescriptions: New Ferrous Sulfate [Iron (65 MG Elemental)] 325 mg PO BID-W/MEALS #60 tab Ibuprofen [Motrin] 600 mg PO Q6HR PRN #30 tab PRN Reason: Mild Pain (Scale 1 To 3) No Action Vit No.179/Iron/Folic [ Tablet] 1 each PO DAILY Discharge Medication List Vit No.179/Iron/Folic [ Tablet] 1 each PO DAILY 03/29/23 [History] Ferrous Sulfate [Iron (65 MG Elemental)] 325 mg PO BID-W/MEALS #60 tab 04/12/23 [Rx] Ibuprofen [Motrin] 600 mg PO Q6HR PRN #30 tab 04/12/23 [Rx] Follow up Appointment(s)/Referral(s): Lupe Lagunas DO [REFERRING] - 6 Weeks Patient Instructions/Handouts: Iron Rich Diet (DC), Vaginal Delivery (DC) Activity/Diet/Wound Care/Special Instructions: No intercourse or anything per vagina for 6 weeks. Please call your primary bottle filler. Having any fever, chills, excessive vaginal bleeding, and/or abdominal pain. Discharge Disposition: HOME SELF-CARE
== END 2023-04-12 13:35 | disposition home or self-care (01) | DRG 560 ==
LOC: FBPOP 00:08 → 4FBP 00:20
PROVIDERS: ADMIT Obstetrics & Gynecology; ATTEND Obstetrics & Gynecology
PROC: 10E0XZZ Delivery of Products of Conception, External Approach (ICD-10-PCS; principal; 2023-04-11)
DX: O42.92 Full-term premature rupture of membranes, unspecified as to length of time between rupture and onset of labor (principal); O26.893 Other specified pregnancy related conditions, third trimester; O45.93 Premature separation of placenta, unspecified, third trimester; Z37.0 Single live birth; Z3A.38 38 weeks gestation of pregnancy; O62.3 Precipitate labor; O99.824 Streptococcus B carrier state complicating childbirth; Z67.41 Type O blood, Rh negative; Z90.49 Acquired absence of other specified parts of digestive tract; Z91.199 Patient's noncompliance with other medical treatment and regimen due to unspecified reason
CPT/HCPCS: 80306; 81001; 82947; 85025; 85461; 86762; 86780; 86850; 86870; 86880; 86900; 86901; 87340; 87390; 87491; 87591; 88307; 99213

== ENCOUNTER 2024-02-24 01:27 | Emergency (ER) | payer OTHER ==
--- NOTE | 2024-02-24 01:57 | ED ---
Nausea/Vomiting/Diarrhea HPI - General Source: patient, RN notes reviewed Mode of arrival: ambulatory Limitations: no limitations <Jie Hernandez - Last Filed: 02/24/24 19:06> <Ainsley Gardner - Last Filed: 02/24/24 21:28> <Aleshia - Last Filed: 02/28/24 14:17> - General Chief complaint: Nausea/Vomiting/Diarrhea Stated complaint: Dizziness Time Seen by Provider: 02/24/24 01:51 - History of Present Illness Initial comments: This is a 38-year-old female with no significant past medical history presenting to the emergency department via EMS with multiple complaints. states that since she has been experiencing bodyaches, headaches, chills and fevers. patient adds that over the past 2 days she has been experiencing nausea, vomiting, diarrhea. Today she began to develop right lower quadrant abdominal pain, denying radiation of pain. She denies urinary complaints, hematemesis, hematochezia, melena, cough, rhinorrhea or congestion. Patient has a previous surgical abdominal history of cholecystectomy. she has not taken any medications today to attempt and alleviate her symptoms (Jie Hernandez) - Related Data Home Medications Medication Instructions Recorded Confirmed Vit No.179/Iron/Folic 1 each PO DAILY 03/29/23 04/11/23 [ Tablet] Previous Rx's Medication Instructions Recorded Ferrous Sulfate [Iron (65 MG 325 mg PO BID-W/MEALS #60 tab 04/12/23 Elemental)] Ibuprofen [Motrin] 600 mg PO Q6HR PRN #30 tab 04/12/23 Cefpodoxime Proxetil [Vantin] 200 mg PO Q12HR 14 Days #28 tab 02/24/24 Sulfamethox-Tmp 800-160Mg [Bactrim 1 each PO Q12HR #28 tab 02/24/24 Ds] Allergies Allergy/AdvReac Type Severity Reaction Status Date / Time No Known Allergies Allergy Verified 02/24/24 01:29 Review of Systems ROS Other: All systems not noted in ROS Statement are negative. <Jie Hernandez - Last Filed: 02/24/24 19:06> ROS Other: All systems not noted in ROS Statement are negative. <Ainsley Gardner - Last Filed: 02/24/24 21:28> ROS Other: All systems not noted in ROS Statement are negative. <Aleshia Fischer - Last Filed: 02/28/24 14:17> ROS Statement: Those systems with pertinent positive or pertinent negative responses have been documented in the HPI. Past Medical History Past Medical History: No Reported History Additional Past Medical History / Comment(s): Obstetric history: She has had 9 previous vaginal deliveries History of Any Multi-Drug Resistant Organisms: None Reported Past Surgical History: Cholecystectomy Additional Past Surgical History / Comment(s): cholecystectomy 2006 Past Anesthesia/Blood Transfusion Reactions: No Reported Reaction Past Psychological History: No Psychological Hx Reported Smoking Status: Vaper - Past Family History Father Family Medical History: No Reported History <Jie Hernandez - Last Filed: 02/24/24 19:06> General Exam Limitations: no limitations General appearance: alert, in no apparent distress Eye exam: Present: normal appearance, PERRL, EOMI. Absent: scleral icterus, conjunctival injection, periorbital swelling Neck exam: Present: normal inspection. Absent: tenderness, meningismus, lymphadenopathy Respiratory exam: Present: normal lung sounds bilaterally. Absent: respiratory distress, wheezes, rales, rhonchi, stridor Cardiovascular Exam: Present: regular rate, normal rhythm, tachycardia, normal heart sounds. Absent: systolic murmur, diastolic murmur, rubs, gallop, clicks GI/Abdominal exam: Present: soft, tenderness (RLQ), normal bowel sounds. Absent: distended, guarding, rebound, rigid Extremities exam: Present: normal inspection, full ROM, normal capillary refill. Absent: tenderness, pedal edema, joint swelling, calf tenderness Skin exam: Present: warm, dry, intact, normal color. Absent: rash <Jie Hernandez - Last Filed: 02/24/24 19:06> Course Vital Signs 02/24/24 02/24/24 02/24/24 01:29 03:36 06:00 Temperature 101.1 F H Pulse Rate 110 H 78 71 Respiratory 18 18 19 Rate Blood Pressure 107/75 94/55 114/60 O2 Sat by Pulse 96 98 97 Oximetry 02/24/24 07:04 Temperature 98.0 F Pulse Rate 67 Respiratory 16 Rate Blood Pressure 96/56 O2 Sat by Pulse 96 Oximetry Medical Decision Making - Lab Data Result diagrams: 02/24/24 02:06 02/24/24 02:06 <DavidJie - Last Filed: 02/24/24 19:06> - Lab Data Result diagrams: 02/24/24 02:06 02/24/24 02:06 <ArbenlachoAinsley Nichole - Last Filed: 02/24/24 21:28> - Lab Data Result diagrams: 02/24/24 02:06 02/24/24 02:06 <Aleshia Fischer - Last Filed: 02/28/24 14:17> - Medical Decision Making Was pt. sent in by a medical professional or institution (, PA, ACCOUNTS PAYABLE TECHNICIAN, urgent care, hospital, or penitentiary...) When possible be specific @ -[No] Did you speak to anyone other than the patient for history (EMS, parent, family, police, friend...)? What history was obtained from this source @ -[No] Did you review nursing and triage notes (agree or disagree)? Why? @ -[I reviewed and agree with nursing and triage notes] Were old charts reviewed (outside hosp., previous admission, EMS record, old EKG, old radiological studies, urgent care reports/EKG's, penitentiary records)? Report findings @ -[No old charts were reviewed] Differential Diagnosis (chest pain, altered mental status, abdominal pain women, abdominal pain men, vaginal bleeding, weakness, fever, dyspnea, syncope, headache, dizziness, GI bleed, back pain, seizure, CVA, palpatations, mental health, musculoskeletal)? @ -Differential Abdominal Pain Women: Appendicitis, Cholecystitis, diverticulosis, ischemic bowel, pancreatitis, hepatitis, UTI, gastroenteritis, AAA, incarcerated hernia, bowel obstruction, constipation, inflammatory bowel, hepatitis, peptic ulcer disease, splenic infarction, perforated viscus, vulvitis, ovarian torsion, PID, kidney stone, placenta abruption, this is not meant to be an all-inclusive list EKG interpreted by me (3pts min.). @ -None X-rays interpreted by me (1pt min.). @ -[None done] CT interpreted by me (1pt min.). @ -[None done] U/S interpreted by me (1pt. min.). @ -[None done] What testing was considered but not performed or refused? (CT, X-rays, U/S, labs)? Why? @ -[None] What meds were considered but not given or refused? Why? @ -[None] Did you discuss the management of the patient with other professionals (professionals i.e. , PA, ACCOUNTS PAYABLE TECHNICIAN, lab, RT, psych nurse, addiction social worker, sports betting manager, teacher, contracts officer, case management social worker)? Give summary @ -[No] Was smoking cessation discussed for >3mins.? @ -[No] Was critical care preformed (if so, how long)? @ -[No] Were there social determinants of health that impacted care today? How? ( Homelessness, low income, unemployed, alcoholism, drug addiction, transportation, low edu. Level, literacy, decrease access to med. care, retirement, rehab)? @ -[No] Was there de-escalation of care discussed even if they declined (Discuss DNR or withdrawal of care, Hospice)? DNR status @ -[No] What co-morbidities impacted this encounter? (DM, HTN, Smoking, COPD, CAD, Cancer, CVA, ARF, Chemo, Hep., AIDS, mental health diagnosis, sleep apnea, morbid obesity)? @ -[None] Was patient admitted / discharged? Hospital course, mention meds given and route, prescriptions, significant lab abnormalities, going to OR and other pertinent info. @ -38-year-old female with abdominal pain, nausea, vomiting, diarrhea. On patient's arrival to emergency department she had to be febrile and tachycardic. Physical exam is remarkable for right lower quadrant tenderness over McBurney's point to palpation. There is no signs of rebound tenderness or rigidity. Patient is provided with IV fluids and Tylenol pending laboratory results. Additionally, patient will undergo CT imaging of the abdomen with concern for appendicitis. She is in agreement with this plan. Patient's labs are remarkable for mild anemia with a hemoglobin of 10.6, hematocrit 31.5. Hypokalemia with a potassium of 3.1. Urinalysis remarkable for infection including greater than 182 white blood cells, large leukocyte esterase. hCG negative. patient is signed out to my attending, Dr. Fsicher, pending CT imaging results and disposition. Undiagnosed new problem with uncertain prognosis? @ -[No] Drug Therapy requiring intensive monitoring for toxicity (Heparin, Nitro, Insulin, Cardizem)? @ -[No] Were any procedures done? @ -[No] Diagnosis/symptom? @ -[default] Acute, or Chronic, or Acute on Chronic? @ -[default] Uncomplicated (without systemic symptoms) or Complicated (systemic symptoms)? @ -[default] Side effects of treatment? @ -[No] Exacerbation, Progression, or Severe Exacerbation? @ -[No] Poses a threat to life or bodily function? How? (Chest pain, [place], [place], pneumonia, PE, COPD, DKA, ARF, appy, cholecystitis, CVA, Diverticulitis, Homicidal, Suicidal, threat to staff... and all critical care pts) @ -[No] (Jie Hernandez) The patient called the emergency department to request the medication change. States that the antibiotic that was prescribed was not covered by her insurance. I did place the patient on Bactrim as it appears she was treated for pyelonephritis. Patient is not . 14 days worth of antibiotics are called into the pharmacy. Patient instructed to follow the discharge instructions that she was given previously and follow-up with her primary care doctor within 2 to 4 days. Have a repeat urinalysis performed to ensure her infection has cleared. Return for any new or worsening symptoms (Ainsley Gardner) Was patient admitted / discharged? Hospital course, mention meds given and route, prescriptions, significant lab abnormalities, going to OR and other pertinent info. @Discharged- Patient presented to and signed out to myself by TAVO pending completion of CT scan. CT scan significant for mild right hydronephrosis with no stones. Suspicious for pyelonephritis/infectious ureteritis from bladder infection normal append ix. Updated patient to findings. Her pain is currently controlled as well as her fever. Discussed with plan for dose of IV antibiotics and discharged with oral antibiotics. Patient is agreeable plan of care. 1 g of cefepime ordered. Patient discharged in stable condition. In my medical judgment there is currently no evidence of an immediate life- threatening or surgical condition. Discharge is therefore indicated at this time. Discharge treatment instructions, follow up instructions, and appropriate emergency department return precautions were discussed with the patient and/or medical decision maker. Patient and/or medical decision maker expressed understanding of and agreed with the treatment plan, follow up instructions, and emergency department return precaution. All patient's and/or medical decision maker's questions were answered. The patient was instructed to return to the ED for any changes in symptoms, persistent symptoms, inability to obtain proper follow-up or for any further concerns. Patient received verbal and written instructions for this condition. Undiagnosed new problem with uncertain prognosis? @ -No Drug Therapy requiring intensive monitoring for toxicity (Heparin, Nitro, Insulin, Cardizem)? @ -No Were any procedures done? @ -No Diagnosis/symptom? Pyelonephritis Acute, or Chronic, or Acute on Chronic? @ -Acute Uncomplicated (without systemic symptoms) or Complicated (systemic symptoms)? @Complicated Side effects of treatment? @ -No Exacerbation, Progression, or Severe Exacerbation? @ -No Poses a threat to life or bodily function? How? (Chest pain, [place], [place], pneumonia, PE, COPD, DKA, ARF, appy, cholecystitis, CVA, Diverticulitis, Homicidal, Suicidal, threat to staff... and all critical care pts) @ -Potentially, if left untreated could lead to urosepsis and septic shock. At time of discharge, no. (Aleshia Fischer) - Lab Data Lab Results 02/24/24 02/24/24 02/24/24 Range/Units 02:06 02:06 02:06 WBC 7.9 (3.8-10.6) k/uL RBC 3.97 (3.80-5.40) m/uL Hgb 10.6 L (11.4-16.0) gm/dL Hct 31.5 L (34.0-46.0) % MCV 79.3 L (80.0-100.0) fL MCH 26.7 (25.0-35.0) pg MCHC 33.7 (31.0-37.0) g/dL RDW 13.5 (11.5-15.5) % Plt Count 250 (150-450) k/uL MPV 7.5 Neutrophils % 71 % Lymphocytes % 16 % Monocytes % 9 % Eosinophils % 0 % Basophils % 0 % Neutrophils # 5.6 (1.3-7.7) k/uL Lymphocytes # 1.2 (1.0-4.8) k/uL Monocytes # 0.7 (0-1.0) k/uL Eosinophils # 0.0 (0-0.7) k/uL Basophils # 0.0 (0-0.2) k/uL Sodium 134 L (137-145) mmol/L Potassium 3.1 L (3.5-5.1) mmol/L Chloride 107 (98-107) mmol/L Carbon Dioxide 19 L (22-30) mmol/L Anion Gap 8 mmol/L BUN 7 (7-17) mg/dL Creatinine 0.90 (0.52-1.04) mg/dL Est GFR (CKD-EPI)AfAm >90 (>60 ml/min/1.73 sqM) Est GFR (CKD-EPI)NonAf 83 (>60 ml/min/1.73 sqM) Glucose 120 H (74-99) mg/dL Plasma Lactic Acid Tad 0.9 (0.7-2.0) mmol/L Calcium 8.1 L (8.4-10.2) mg/dL Total Bilirubin 0.7 (0.2-1.3) mg/dL AST 35 (14-36) U/L ALT 28 (4-34) U/L Alkaline Phosphatase 111 (38-126) U/L Total Protein 6.5 (6.3-8.2) g/dL Albumin 3.4 L (3.5-5.0) g/dL Amylase 59 (30-110) U/L Lipase 153 (23-300) U/L Urine Color Urine Appearance (Clear) Urine pH (5.0-8.0) Ur Specific [place] (1.001-1.035) Urine Protein (Negative) Urine Glucose (UA) (Negative) Urine Ketones (Negative) Urine Blood (Negative) Urine Nitrite (Negative) Urine Bilirubin (Negative) Urine Urobilinogen (<2.0) mg/dL Ur Leukocyte Esterase (Negative) Urine RBC (0-5) /hpf Urine WBC (0-5) /hpf Urine WBC Clumps (None) /hpf Ur Squamous Epith Cells (0-4) /hpf Urine Bacteria (None) /hpf Hyaline Casts (0-2) /lpf WBC Casts (0) /lpf Urine Mucus (None) /hpf Urine HCG, Qual (Not Detectd) Influenza Type A (PCR) (Not Detectd) Influenza Type B (PCR) (Not Detectd) RSV (PCR) (Not Detectd) SARS-CoV-2 (PCR) (Not Detectd) 02/24/24 02/24/24 02/24/24 Range/Units 02:06 02:20 02:20 WBC (3.8-10.6) k/uL RBC (3.80-5.40) m/uL Hgb (11.4-16.0) gm/dL Hct (34.0-46.0) % MCV (80.0-100.0) fL MCH (25.0-35.0) pg MCHC (31.0-37.0) g/dL RDW (11.5-15.5) % Plt Count (150-450) k/uL MPV Neutrophils % % Lymphocytes % % Monocytes % % Eosinophils % % Basophils % % Neutrophils # (1.3-7.7) k/uL Lymphocytes # (1.0-4.8) k/uL Monocytes # (0-1.0) k/uL Eosinophils # (0-0.7) k/uL Basophils # (0-0.2) k/uL Sodium (137-145) mmol/L Potassium (3.5-5.1) mmol/L Chloride (98-107) mmol/L Carbon Dioxide (22-30) mmol/L Anion Gap mmol/L BUN (7-17) mg/dL Creatinine (0.52-1.04) mg/dL Est GFR (CKD-EPI)AfAm (>60 ml/min/1.73 sqM) Est GFR (CKD-EPI)NonAf (>60 ml/min/1.73 sqM) Glucose (74-99) mg/dL Plasma Lactic Acid Tad (0.7-2.0) mmol/L Calcium (8.4-10.2) mg/dL Total Bilirubin (0.2-1.3) mg/dL AST (14-36) U/L ALT (4-34) U/L Alkaline Phosphatase (38-126) U/L Total Protein (6.3-8.2) g/dL Albumin (3.5-5.0) g/dL Amylase (30-110) U/L Lipase (23-300) U/L Urine Color Yellow Urine Appearance Turbid H (Clear) Urine pH 6.0 (5.0-8.0) Ur Specific [place] 1.019 (1.001-1.035) Urine Protein 1+ H (Negative) Urine Glucose (UA) Negative (Negative) Urine Ketones Negative (Negative) Urine Blood Small H (Negative) Urine Nitrite Negative (Negative) Urine Bilirubin Negative (Negative) Urine Urobilinogen 3.0 (<2.0) mg/dL Ur Leukocyte Esterase Large H (Negative) Urine RBC 10 H (0-5) /hpf Urine WBC >182 H (0-5) /hpf Urine WBC Clumps Many H (None) /hpf Ur Squamous Epith Cells 4 (0-4) /hpf Urine Bacteria Many H (None) /hpf Hyaline Casts 6 H (0-2) /lpf WBC Casts 12 (0) /lpf Urine Mucus Many H (None) /hpf Urine HCG, Qual Not Detected (Not Detectd) Influenza Type A (PCR) Not Detected (Not Detectd) Influenza Type B (PCR) Not Detected (Not Detectd) RSV (PCR) Not Detected (Not Detectd) SARS-CoV-2 (PCR) Not Detected (Not Detectd) Disposition Is patient prescribed a controlled substance at d/c from ED?: No <Jie Hernandez - Last Filed: 02/24/24 19:06> <Ainsley Gardner - Last Filed: 02/24/24 21:28> <Aleshia Fischer - Last Filed: 02/28/24 14:17> Clinical Impression: Pyelonephritis Disposition: HOME SELF-CARE Condition: Good Instructions (If sedation given, give patient instructions): Kidney Infection (ED) Additional Instructions: Every disease is a spectrum and a small chance still exists that a serious condition could develop, for this reason, please monitor yourself closely for new, changing or worsening symptoms, symptoms that do not improve in 48 hours, fevers beyond the next 24 hours, worsening or uncontrolled pain, burning with urination, inability to tolerate/keep down fluids or your medications, inability to follow up with outpatient providers as instructed and should you experience these symptoms or should you have any further concerns for your wellbeing please return to the ED or call 911 immediately. Please follow up with urology within 48 hours regarding today's visit. Please drink plenty of fluids. PLEASE call your primary care physician as soon as possible to arrange / discuss plan for followup appointment. Appointment in the next 1-3 days is strongly encouraged if possible. PLEASE let us know here before you leave if there is anything further we can do to be of any assistance. Take care and feel Better! Prescriptions: Sulfamethox-Tmp 800-160Mg [Bactrim Ds] 1 each PO Q12HR #28 tab Cefpodoxime Proxetil [Vantin] 200 mg PO Q12HR 14 Days #28 tab Referrals: None,Stated [Primary Care Provider] - 1-2 days Richy Grayson MD [STAFF PHYSICIAN] - 1-2 days Forms: Area PCPs
[2024-02-24] MEDS: SODIUM CHLORIDE 0.9% 1,000 ML IV STA (02:11)
[2024-02-24 02:30] LABS: Basophils % (A) 0 %; Eosinophils % (A) 0 %; HCT 31.5 % (34.0-46.0); HGB 10.6 gm/dL (11.4-16.0); Lymphocytes # (A) 1.2 k/uL (1.0-4.8); Lymphocytes % (A) 16 %; MCH 26.7 pg (25.0-35.0); MCHC 33.7 g/dL (31.0-37.0); MCV 79.3 fL (80.0-100.0); Mean Platelet Volume 7.5; Monocytes # (A) 0.7 k/uL (0-1.0); Monocytes % (A) 9 %; Neutrophils # (A) 5.6 k/uL (1.3-7.7); Neutrophils % (A) 71 %; Platelet Count 250 k/uL (150-450); RBC 3.97 m/uL (3.80-5.40); RDW 13.5 % (11.5-15.5); WBC 7.9 k/uL (3.8-10.6)
[2024-02-24] MEDS: ACETAMINOPHEN TAB 500 MG TAB PO STA (02:32)
[2024-02-24 02:37] LABS: ALT 28 U/L (4-34); AST 35 U/L (14-36); African American GFR (CKD) >90 (>60 ml/min/1.73 sqM); Albumin 3.4 g/dL (3.5-5.0); Alkaline Phosphatase 111 U/L (38-126); Amylase 59 U/L (30-110); Anion Gap 8 mmol/L; Blood Urea Nitrogen 7 mg/dL (7-17); Calcium 8.1 mg/dL (8.4-10.2); Carbon Dioxide 19 mmol/L (22-30); Chloride 107 mmol/L (98-107); Glucose 120 mg/dL (74-99); Lipase 153 U/L (23-300); Non-African American GFR(CKD) 83 (>60 ml/min/1.73 sqM); Potassium 3.1 mmol/L (3.5-5.1); Sodium 134 mmol/L (137-145); Total Bilirubin 0.7 mg/dL (0.2-1.3); Total Protein 6.5 g/dL (6.3-8.2)
[2024-02-24 02:50] LABS: Appearance,Urine Turbid (Clear); Bacteria,Urine Many /hpf; Bilirubin,Urine Negative (Negative); Blood,Urine Small (Negative); Color,Urine Yellow; Glucose,Urine (UA) Negative (Negative); Hyaline Casts,Urine 6 /lpf (0-2); Ketones,Urine Negative (Negative); Leukocyte Esterase,Urine Large (Negative); Mucus,Urine Many /hpf; Nitrite,Urine Negative (Negative); Protein,Urine 1+ (Negative); RBC,Urine 10 /hpf (0-5); Specific Gravity,Urine 1.019 (1.001-1.035); Squamous Epithelial Cell,Urine 4 /hpf (0-4); WBC,Urine >182 /hpf (0-5); White Blood Cell Casts,Urine 12 /lpf (0)
[2024-02-24] MEDS: POTASSIUM CHLORIDE ER 20 MEQ TAB.ER PO STA (03:10)
--- NOTE | 2024-02-24 05:30 | CT ---
EXAM: CT Abdomen and Pelvis With Intravenous Contrast CLINICAL HISTORY: ITS.REASON CT Reason: RLQ ab pain, fever, diarrhea TECHNIQUE: Axial computed tomography images of the abdomen and pelvis with intravenous contrast. CTDI is 17.8 mGy and DLP is 870 mGy-cm. This CT exam was performed using one or more of the following dose reduction techniques: automated exposure control, adjustment of the mA and/or kV according to patient size, and/or use of iterative reconstruction technique. COMPARISON: No relevant prior studies available. FINDINGS: ABDOMEN: Liver: Enlarged. Gallbladder and bile ducts: Removed. Pancreas: Unremarkable. Spleen: Unremarkable. Adrenals: Unremarkable. Kidneys and ureters: Mild right hydroureteronephrosis. No stones Stomach and bowel: No bowel obstruction. No bowel wall thickening. PELVIS: Appendix: No evidence of appendicitis. Bladder: Thickened bladder wall. Reproductive: Unremarkable. ABDOMEN and PELVIS: Intraperitoneal space: Unremarkable. Bones/joints: No acute fractures. Soft tissues: Unremarkable. Vasculature: No abdominal aortic aneurysm. Lymph nodes: No enlarged lymph nodes. IMPRESSION: Mild right hydroureteronephrosis with no stones. Suspicious for pyelonephritis/infectious ureteritis from bladder infection. Normal appendix.
[2024-02-24] MEDS: CEFEPIME 1 GM in SODIUM CHLORIDE 0.9% 50 ML IVPB STA (06:24)
[2024-02-24 07:06] VITALS: BP 96/56; PULSE 67; RESP 16; TEMP 98
== END 2024-02-24 07:17 | disposition home or self-care (01) ==
LOC: EC 01:27
DX: N12 Tubulo-interstitial nephritis, not specified as acute or chronic (principal); F17.290 Nicotine dependence, other tobacco product, uncomplicated; Z11.52 Encounter for screening for COVID-19
CPT/HCPCS: 36415; 80053; 82150; 83605; 83690; 85025; 81001; 81025; 87086; 87077; 87186; 87636; 74177; 99285; 96365; 96361; J0692; Q9967